=== PATIENT | female | born 1980 | race Caucasian/White ===

== ENCOUNTER 2020-08-13 16:57 | Emergency (ER) | payer OTHER, SELFPAY ==
--- NOTE | 2020-08-13 | XR_ITS ---
EXAMINATION: LEFT HAND CLINICAL INFORMATION: Injury. Pain. COMPARISON: None TECHNIQUE: 3 views. FINDINGS: There is no oblique fracture of the midshaft of the third metacarpal. Fracture is slightly displaced and angulated. XR/XR hand wrist LT IMPRESSION: Oblique fracture midshaft of third metacarpal.
[2020-08-13 17:46] VITALS: BP 143/80; PULSE 93; RESP 16; TEMP 37.1; O2SAT 98; BMI 23.3
--- NOTE | 2020-08-13 18:15 | MHC.RECOVSUP ---
? Reason for consult Seeking help for detox o Current location: [facility] o Identified substance use concern: Alcohol - Seeking ATS (detox) - Support ? Intervention: o ATS bed search started ^PM /completed 6:15PM o Community resources provided o Harm reduction discussion ? Plan: o Patient to follow up with [facility] after discharge ? Additional information: could not find a detox bed for said Patient.. I provided patient with [facility] information and other resource for detox. Patient stated that she will be going to [facility] tomorrow.
--- NOTE | 2020-08-13 18:30 | ED.EXTPRO ---
HPI - Extremity Problem General Chief complaint: Extremity Injury, Upper Stated complaint: Seeking detox/hand injury Source: patient Mode of arrival: ambulatory Limitations: no limitations History of Present Illness HPI Narrative: 39-year-old female with known hand fracture presents for left hand pain. She stated that she removed the splint that was placed by a prior provider because she was upset that she was not seen immediately by Orthopedics. She is also requesting detox for alcohol. MD Complaint: extremity pain Onset (ago): week(s) (1) Pain Consistency: constant Location: left Severity scale (1-10): 9 Quality: aching Relieving factors: nothing Exacerbating factors: range of motion and palpation Associated symptoms: denies other symptoms Related Data Previous Rx's Medication Instructions Recorded chlordiazepoxide HCl 25 mg PO Q12H PRN #30 cap 08/13/20 ibuprofen 600 mg PO Q8H PRN #30 tab 08/13/20 valacyclovir 1,000 mg PO DAILY 5 Days #5 tab 08/13/20 Allergies Allergy/AdvReac Type Severity Reaction Status Date / Time bee pollen [BEE STINGS] Allergy Unknown ANAPHYLAXIS Unverified 04/03/20 16:21 Review of Systems Review of Systems: Constitutional: No Fever, No Chills ENT/Mouth: No Ear Pain, No Hoarseness, No sore throat Eyes: No Eye Pain, No Swelling, No Redness, No Foreign Body Cardiovascular: No Chest Pain, No SOB Respiratory: No Cough, No Dyspnea Gastrointestinal: No Nausea, No Vomiting, No Diarrhea, No abdominal Pain Genitourinary: No Dysuria, No Hematuria Musculoskeletal: positive left hand pain with known fracture, No Myalgias, No Joint Swelling Skin: No Skin lacerations, No rash Neuro: No Weakness, No Numbness, No Paresthesias, No Loss of Consciousness, No Dizziness, No Headache Psych: Positive alcohol abuse, No Anxiety/Panic, No Depression Heme/Lymph: no easy bruising, no Lymphadenopathy Endocrine: No Polyuria, No Polydipsia Yes all other systems are reviewed and are negative [facility] Past Medical History Attestation statement: The following information was validated with the patient. Medical History Hepatitis C Social History Social History Smoking Status: Current every day smoker Use of substances other than those prescribed or required for medical reasons: Yes Substance Use Type: Crack/Cocaine and Marijuana Any prior treatment program specific to substance use: Yes Advance Directives: No Advance Directives Information Provided: Yes Physical Exam Vital Signs: Vital Signs: Last Vital Signs Temp 98.2 F 08/13/20 19:05 Pulse 104 H 08/13/20 19:05 Resp 18 08/13/20 19:05 BP 134/82 08/13/20 19:05 Pulse Ox 97 08/13/20 19:05 Body Mass Index 23.3 Appearance: Alert. Oriented X3. No acute distress. Eyes: Pupils equal, round and reactive to light. ENT: Pharynx normal. Neck: Normal inspection. Neck supple. CVS: Normal heart rate and rhythm. Pulses normal. Respiratory: No respiratory distress. Breath sounds normal. Abdomen: Soft and nontender. Skin: Skin warm and dry. Normal skin color. Normal skin turgor. Extremities: No lower extremity edema. Neuro: No motor deficit. No sensory deficit. Course Course Course Narrative: 39-year-old female with known left hand fracture presents with left hand pain. Is not forthcoming with the information regarding where she was treated for her fracture, she did state that she removed the splint and did not give a reason why. She is also requesting treatment for oral herpes simplex 1 and alcohol withdrawal. Patient does have limited range of motion but no swelling brisk capillary refill to all digits and pulses equal. She is able to move the fingers individually. Minimal swelling noted. X-ray of left hand shows 3rd metacarpal carpal displaced fracture, discussed case with orthopedics and they will follow up with her tomorrow. Ulnar gutter splint placed. Brisk capillary refill noted 30 minutes status post splint placement. Will give her valacyclovir for herpes and Librium for alcohol withdrawal. Detox assistant track and field coach did speak to her and are looking for outpatient beds. Patient verbalized understanding of and agrees plan of care discharge home. Consultations Consultation #1: Nelson Time: 18:56 MDM - Extremity (Nontraumatic) MDM Narrative Medical decision making narrative: Left hand fracture, alcohol withdrawal Differential Diagnosis Differential diagnosis: Likely herpes zoster Medical Records Attestation: I reviewed the patient's medical records. Imaging Data Left hand x-ray: Attestation: I personally reviewed and interpreted this imaging study as follows: Radiologist's impression: EXAMINATION: LEFT HAND CLINICAL INFORMATION: Injury. Pain. COMPARISON: None TECHNIQUE: 3 views. FINDINGS: There is no oblique fracture of the midshaft of the third metacarpal. Fracture is slightly displaced and angulated. XR/XR hand wrist LT IMPRESSION: Oblique fracture midshaft of third metacarpal. Discharge Plan Discharge Clinical Impression: Fracture of wrist, Alcohol withdrawal, Cold sore Patient Disposition: Home, Self-Care Instructions: Hand Fracture (ED), Oral Herpes Simplex Virus Infections (ED), Alcohol Withdrawal (ED) Additional Instructions: You were evaluated for fracture of left hand. Please keep the splint in place until you see Orthopedics. Please call Orthopedics tomorrow, we have provided you a referral number. For your oral herpes simplex, we prescribed valacyclovir twice a day. For alcohol withdrawal we have prescribed Librium. Please take medication as directed. This medication may cause drowsiness, and increased risk for fall. Please use caution when taking this medication. Do not drive or operate machinery while taking this medication. Please consider following up with outpatient detox. Thank you for choosing this emergency department for evaluation. Please follow-up with primary care physician as needed. Return to the emergency department for any new, concerning, or worsening symptoms. Prescriptions: New chlordiazepoxide HCl 25 mg capsule 25 mg PO Q12H PRN (Reason: alcohol withdrawal) Qty: 30 RF: 0 valacyclovir 1 gram tablet 1,000 mg PO DAILY 5 Days Qty: 5 RF: 0 ibuprofen 600 mg tablet 600 mg PO Q8H PRN (Reason: pain) Qty: 30 RF: 0 Referrals: Bella Damon PA-C [Physician Environmental Technician] - 2 days Interventions: ED Discharge Assessment Last Done: 08/13/20 19:58 Discharge Date/Time: 08/13/20 20:00
[2020-08-13 19:05] VITALS: BP 134/82; PULSE 104; RESP 18; TEMP 36.8; O2SAT 97
[2020-08-13] MEDS: Ibuprofen 600 MG TABLET PO (19:40)
--- NOTE | 2020-08-13 19:55 | PC.NURSE ---
PT SPOKE WITH CARE TEAM REGARDING DETOX OPTION AND PT WILL F/U IN MORNING WITH CALLING FOR PLACEMENT INFO PROVIDED TO HER. PT TO CALL IN AM. NO FACILITIES AVAILABLE AT THIS TIME.
== END 2020-08-13 20:00 | disposition home or self-care (01) ==
PROVIDERS: Emergency Provider Emergency Medicine; PCP Internal Medicine
DX: S62.102A Fracture of unspecified carpal bone, left wrist, initial encounter for closed fracture (principal); M79.642 Pain in left hand; F10.239 Alcohol dependence with withdrawal, unspecified; F17.200 Nicotine dependence, unspecified, uncomplicated; F14.90 Cocaine use, unspecified, uncomplicated; F12.90 Cannabis use, unspecified, uncomplicated; B00.1 Herpesviral vesicular dermatitis; W01.0XXA Fall on same level from slipping, tripping and stumbling without subsequent striking against object, initial encounter; Y93.9 Activity, unspecified; Y92.9 Unspecified place or not applicable; Y99.9 Unspecified external cause status; Y90.9 Presence of alcohol in blood, level not specified; Z79.899 Other long term (current) drug therapy; Z71.6 Tobacco abuse counseling
CPT/HCPCS: 73110; 73130; 99284

== ENCOUNTER 2020-08-18 13:39 | Outpatient (REF) | payer OTHER, SELFPAY ==
--- NOTE | 2020-08-18 14:13 | XR_ITS ---
EXAMINATION: XR HAND, LEFT CLINICAL INFORMATION: Pain. COMPARISON: Radiographs dated 08/13/2020. TECHNIQUE: PA, lateral, and oblique views of the left hand. FINDINGS: Bony mineralization is normal. An angulated, oblique fracture is seen of the midshaft of the third metacarpal bone, in stable alignment. The distal fracture fragment again shows approximately 5 mm of posterior displacement and 2 mm of medial displacement. No dislocation is seen. There are no unusual degenerative changes. No foreign body is seen. There is mild soft tissue swelling of the dorsum of hand. XR/XR hand LT min 3V IMPRESSION: There is stable alignment of an oblique fracture of the midshaft of the left third metacarpal.
== END 2020-08-18 13:40 | disposition home or self-care (01) ==
LOC: HO.HOSX 13:39
PROVIDERS: Visit Provider Physician Assistant
DX: M79.642 Pain in left hand (principal); S62.323A Displaced fracture of shaft of third metacarpal bone, left hand, initial encounter for closed fracture; Y04.2XXA Assault by strike against or bumped into by another person, initial encounter; Y93.9 Activity, unspecified; Y92.9 Unspecified place or not applicable; Y99.8 Other external cause status; B19.20 Unspecified viral hepatitis C without hepatic coma; F14.20 Cocaine dependence, uncomplicated; F12.20 Cannabis dependence, uncomplicated; F17.200 Nicotine dependence, unspecified, uncomplicated; Z91.030 Bee allergy status; Z59.0 Homelessness
CPT/HCPCS: 29075; 73130; 99202

== ENCOUNTER 2020-08-18 15:25 | Emergency (ER) | payer OTHER, SELFPAY ==
--- NOTE | 2020-08-18 17:29 | PC.NURSE ---
back timed- this rn witnessed tech assist pt to bathroom, after 5-8mins, checked on pt- pt not answering, refusing to open door. Security at bathroom, pt opened door- appeared to have reddened sclera- pt stated im leaving.. , pt encouraged to stay for treatment, pt refused and left without further incident.
== END 2020-08-18 17:34 | disposition left against medical advice (07) ==
PROVIDERS: Emergency Provider Emergency Medicine
DX: F10.10 Alcohol abuse, uncomplicated (principal)

== ENCOUNTER 2021-06-25 12:50 | Emergency (ER) | payer OTHER, SELFPAY ==
--- NOTE | ~2021-06-25 | CT_ITS ---
EXAMINATION: CT ABDOMEN AND PELVIS WITH CONTRAST CLINICAL INFORMATION: Right upper quadrant pain. Epigastric pain. COMPARISON: None TECHNIQUE: Multidetector volumetric images were obtained from the superior aspect of the liver through the pubic symphysis following administration 85 mL of Omnipaque 350 intravenous contrast. Sagittal and coronal reformatted images were obtained on the technologist's workstation. Oral contrast: No. This CT examination was performed using dose optimization techniques as appropriate, variously including the following: *Automated exposure control *Adjustment of mA and/or kV according to patient size (this includes techniques or standardized protocols for targeted exams where dose is matched to indication/reason for exam; i.e. extremities or head) *Use of iterative reconstruction technique DLP: 471 mGy-cm FINDINGS: LUNG BASES: The visualized lung bases are unremarkable. LIVER, GALLBLADDER, AND BILIARY TREE: The liver is mildly enlarged with normal shape and attenuation. No focal hepatic lesion or biliary ductal dilatation is present. The gallbladder is partially distended with no evidence of radiopaque gallstones, gallbladder wall thickening, or obvious pericholecystic inflammatory changes. PANCREAS: Unremarkable. SPLEEN: Mildly enlarged measuring up to 14.5 cm in greatest dimension. ADRENAL GLANDS: Unremarkable. KIDNEYS AND URETERS: The kidneys are normal in size, shape, and attenuation. No hydronephrosis, hydroureter, or calculi seen. No perinephric stranding. BLADDER: Unremarkable. GASTROINTESTINAL TRACT: Small, sliding hiatal hernia. No bowel wall thickening or associated inflammatory change. Mild stool burden. No small or large bowel obstruction. Appendix is not well seen. No right lower quadrant inflammatory change. PERITONEAL CAVITY: No intra-abdominal free air or free fluid. No intra-abdominal mass or organized fluid collection/abscess formation. ABDOMINAL WALL: No significant hernia is appreciated. LYMPH NODES: Normal. VASCULAR: No abdominal aortic dilatation or dissection. There is prominence of the portal vein with collateral vessels adjacent to the gastroesophageal junction. PELVIC VISCERA: The uterus and adnexa are unremarkable. OSSEOUS STRUCTURES: Unremarkable. CT/CT abdomen pelvis w con IMPRESSION: 1. Mild hepatosplenomegaly. Prominence of the portal vein with collateral vessels adjacent to the gastroesophageal junction. A degree of portal hypertension could be considered in the appropriate clinical setting. No hepatic parenchymal lesion or biliary ductal dilatation. Unremarkable gallbladder without cholelithiasis or inflammatory change. 2. Otherwise unremarkable examination. Fleischner guidelines were followed.
[2021-06-25 13:41] VITALS: BP 105/66; PULSE 79; TEMP 36.6; O2SAT 98; BMI 24.3
--- NOTE | 2021-06-25 14:09 | PC.NURSE ---
PATIENT BROUGHT TO TRAIGE/EKG ROOM TO DRAW BLOOD WHILE SHE WAITS IN THE WAITING ROOM. PATIENT STATES SHE IS ONLY GOING TO ALLOW A SINGLE ATTEMPT AT BLOOD DRAWS DURING THIS VISIT AND ALSO REQUESTS AN BLOOD TEST FOR . PER DIESEL ENGINE INSPECTOR KASSIE FRANKS, I INFORMED THE PATIENT THAT THIS TEST MUST BE ORDERED BY AN ED PHYSICIAN AND CANNOT BE ORDERED UNTIL SHE IS BROUGHT TO A ROOM IN THE ED. PATIENT SUBSEQUENTLY DECLINED TO HAVE HER BLOOD DRAWN AT THIS TIME.
[2021-06-25 14:28] LABS: Appearance Urine CLEAR; Color Urine YELLOW; Glucose Urine UA NEG (NEG); Leukocyte Esterase Urine NEG (NEG); Nitrite Urine NEG (NEG); Urine Blood NEG (NEG); Urine Ketones NEG (NEG); Urine Protein NEG (NEG-TRACE)
[2021-06-25 14:29] LABS: UPreg QC Valid YES; Urine Pregnancy NEGATIVE (NEGATIVE)
[2021-06-25 14:38] LABS: Squamous Epithelial Cell Urine 1+ /LPF
[2021-06-25 14:39] LABS: Bacteria Urine TRACE /LPF
[2021-06-25 14:40] LABS: RBC Urine 0-2 /HPF (0); WBC Urine 0 /HPF (0-4)
--- NOTE | 2021-06-25 15:56 | ED_ITS ---
HPI - Abdominal Pain General Chief Complaint: Abdominal Pain Stated Complaint: Liver issues Time Seen by Provider: 06/25/21 15:41 Source: patient Mode of arrival: ambulatory Limitations: no limitations History of Present Illness HPI narrative: Patient comes to emergency room complaining of abdominal bloating. Patient states that over the last week, she has had abdominal swelling, nausea, no vomiting or diarrhea. Patient states that she has been 7 times and she usually gets similar symptoms at the beginning of her . Patient has been 7 times, states that for most of her pregnancies, the urine test was negative but the blood work was positive. Patient states that she was recently diagnosed with hepatitis-C, she has not started treatment yet. Related Data Previous Rx's Medication Instructions Recorded chlordiazepoxide HCl 25 mg capsule 25 mg PO Q12H PRN #10 cap 08/14/20 ibuprofen 600 mg tablet 600 mg PO Q8H PRN #20 tab 08/14/20 valacyclovir 1 gram tablet 1,000 mg PO DAILY #5 tab 08/14/20 Allergies Allergy/AdvReac Type Severity Reaction Status Date / Time bee pollen [BEE STINGS] Allergy Unknown ANAPHYLAXIS Unverified 04/03/20 16:21 Review of Systems Review of Systems Constitutional : No Weight loss, No Fever, No Chills, No Night Sweats, worsening fatigue ENT/Mouth : No Hearing loss, No Ear Pain, No Nasal Congestion, No Sinus Pain, No Hoarseness, No sore throat, No Rhinorrhea, No Swallowing Difficulty Eyes: No Eye Pain, No Swelling, No Redness, No Foreign Body, No Discharge, No Vision Changes Cardiovascular : No Chest Pain, No SOB, No Dyspnea on Exertion, No Orthopnea, No Edema, No Palpitations Respiratory : No Cough, No Sputum, No Wheezing, No Smoke Exposure, No Dyspnea Gastrointestinal : Complaining of Nausea, No Vomiting, No Diarrhea, complaining upper abdominal bloating/swelling Genitourinary : no irregular bleeding, No Dysuria, No Urinary Frequency, No Hematuria, No Urinary Incontinence, No Urgency, No Flank Pain, No Urinary Flow Changes, No Hesitancy Musculoskeletal : No joint pain, No Myalgias, No Joint Swelling Skin : No Skin Lesions, No rash Neuro : No Weakness, No Numbness, No Paresthesias, No Loss of Consciousness, No Dizziness, No Headache Psych : No Anxiety/Panic, No Depression, No SI/HI/AH/VH, No Social Issues, Heme/Lymph: No Bruising, No Bleeding,No Lymphadenopathy Endocrine : No Polyuria, No Polydipsia, No Temperature Intolerance Physical Exam Vital Signs: Vital Signs: Last Vital Signs Temp 97.8 F 06/25/21 13:41 Pulse 76 06/25/21 18:02 Resp 18 06/25/21 18:02 BP 115/56 L 06/25/21 18:02 Pulse Ox 100 06/25/21 18:02 BMI result Body Mass Index 24.3 Const: Other: Appearance: Alert. Oriented X3. No acute distress. Well- appearing Eyes: Pupils equal, round and reactive to light. ENT: Pharynx normal. Neck: Normal inspection. Neck supple. No lymph nodes noted. No crepitus CVS: Normal heart rate and rhythm. Pulses normal. Normal S1 and S2 Respiratory: No respiratory distress. Breath sounds normal. No Wheezing. No rales Abdomen: Soft and nontender. No rigidity, no distended, no guarding, negative Agee Skin: Skin warm and dry. Normal skin color. Normal skin turgor. Extremities: No lower extremity edema. No Lacerations. No Rash Neuro: Oriented X 3. No motor deficit. No sensory deficit. Moving all extermities. No slurred speech. Course Course Course Narrative: I discussed the labs and imaging with the patient. Patient instructed to follow-up with Infectious Disease and with Gastroenterology for evaluation of portal hypertension MDM - Abdominal Pain Lab Data Result diagrams: 06/25/21 16:46 06/25/21 16:46 Labs: Lab Results 06/25/21 06/25/21 06/25/21 Range/Units 14:14 14:14 14:15 WBC (4.8-10.8) X10*3/uL RBC (4.20-5.50) X10*6/uL Hgb (12.0-16.0) g/dl Hct (37.0-47.0) % MCV (80.0-98.0) fL MCH (27.0-33.0) pg MCHC (31.0-35.0) g/dl RDW (11.0-16.0) % Plt Count (160-400) X10*3/uL MPV (9.4-12.3) fL Immature Gran % (Auto) (0.0-0.4) % Neut % (Auto) (45-73) % Lymph % (Auto) (20-40) % [place] % (Auto) (2-11) % Eos % (Auto) (0-4) % Baso % (Auto) (0-2) % Lymph # (Auto) (1.2-4.9) X10*3/uL [place] # (Auto) (0.1-1.2) X10*3/uL Eos # (Auto) (0.0-0.4) X10*3/uL Baso # (Auto) (0.0-0.2) X10*3/uL Abs Immat Gran (auto) (0.00-0.03) X10*3/uL Absolute Neuts (auto) (2.0-8.3) x10*3/uL Absolute Nucleated RBC (0.0-0.012) X10*3/uL Nucleated RBC % (auto) (0.0-0.2) /100WBC Sodium (135-145) mmol/L Potassium (3.3-5.1) mmol/L Chloride (96-108) mmol/L Carbon Dioxide (22-29) mmol/L Anion Gap (12-20) BUN (9-16) mg/dL Creatinine (0.5-1.4) mg/dL Estim Creat Clear Calc Estimated GFR Random Glucose (60-115) mg/dL Calcium (8.4-10.2) mg/dL Magnesium (1.6-2.6) mg/dL Total Bilirubin (0.0-1.0) mg/dL Direct Bilirubin (0.0-0.5) mg/dL AST (5-31) U/L ALT (0-31) U/L Alkaline Phosphatase (39-117) U/L Total Protein (6.5-8.0) g/dL Albumin (3.5-5.0) g/dL Lipase (8-78) U/L Beta HCG, Quant mIU/mL Urine Color YELLOW Urine Appearance CLEAR Urine pH 8.0 (5.0-8.0) Ur Specific [place] 1.010 (1.005-1.025) Urine Protein NEG (NEG-TRACE) MG/DL Urine Glucose (UA) NEG (NEG) MG/DL Urine Ketones NEG (NEG) MG/DL Urine Blood NEG (NEG) Urine Nitrite NEG (NEG) Ur Leukocyte Esterase NEG (NEG) Urine RBC 0-2 (0) /HPF Urine WBC 0 (0-4) /HPF Ur Squamous Epith Cells 1+ /LPF Urine Bacteria TRACE /LPF Urine Test NEGATIVE (NEGATIVE) Urine Opiates Screen Not Detected (Not Detect) Urine Fentanyl Screen Not Detected (Not Detect) Ur Barbiturates Screen Not Detected (Not Detect) Ur Phencyclidine Scrn Not Detected (Not Detect) Ur Amphetamines Screen Not Detected (Not Detect) U Benzodiazepines Scrn Not Detected (Not Detect) Urine Cocaine Screen Not Detected (Not Detect) U Marijuana (THC) Screen Not Detected (Not Detect) Ethyl Alcohol mg/dL COVID-19 ([facility]) (Negative) COVID-19 Clin Com 06/25/21 06/25/21 06/25/21 Range/Units 16:46 16:46 16:46 WBC 7.1 (4.8-10.8) X10*3/uL RBC 4.52 (4.20-5.50) X10*6/uL Hgb 14.1 (12.0-16.0) g/dl Hct 41.9 (37.0-47.0) % MCV 92.7 (80.0-98.0) fL MCH 31.2 (27.0-33.0) pg MCHC 33.7 (31.0-35.0) g/dl RDW 11.9 (11.0-16.0) % Plt Count 209 (160-400) X10*3/uL MPV 8.9 L (9.4-12.3) fL Immature Gran % (Auto) 0.1 (0.0-0.4) % Neut % (Auto) 53.1 (45-73) % Lymph % (Auto) 32.4 (20-40) % [place] % (Auto) 8.3 (2-11) % Eos % (Auto) 5.4 H (0-4) % Baso % (Auto) 0.7 (0-2) % Lymph # (Auto) 2.3 (1.2-4.9) X10*3/uL [place] # (Auto) 0.6 (0.1-1.2) X10*3/uL Eos # (Auto) 0.4 (0.0-0.4) X10*3/uL Baso # (Auto) 0.1 (0.0-0.2) X10*3/uL Abs Immat Gran (auto) 0.01 (0.00-0.03) X10*3/uL Absolute Neuts (auto) 3.8 (2.0-8.3) x10*3/uL Absolute Nucleated RBC 0.000 (0.0-0.012) X10*3/uL Nucleated RBC % (auto) 0.0 (0.0-0.2) /100WBC Sodium 139 (135-145) mmol/L Potassium 3.5 (3.3-5.1) mmol/L Chloride 107 (96-108) mmol/L Carbon Dioxide 24 (22-29) mmol/L Anion Gap 12 (12-20) BUN 10 (9-16) mg/dL Creatinine 0.81 (0.5-1.4) mg/dL Estim Creat Clear Calc 83.9 Estimated GFR > 60 Random Glucose 83 (60-115) mg/dL Calcium 9.7 (8.4-10.2) mg/dL Magnesium 2.3 (1.6-2.6) mg/dL Total Bilirubin < 0.2 (0.0-1.0) mg/dL Direct Bilirubin < 0.2 (0.0-0.5) mg/dL AST 51 H (5-31) U/L ALT 86 H (0-31) U/L Alkaline Phosphatase 57 (39-117) U/L Total Protein 7.6 (6.5-8.0) g/dL Albumin 4.7 (3.5-5.0) g/dL Lipase 28 (8-78) U/L Beta HCG, Quant mIU/mL Urine Color Urine Appearance Urine pH (5.0-8.0) Ur Specific [place] (1.005-1.025) Urine Protein (NEG-TRACE) MG/DL Urine Glucose (UA) (NEG) MG/DL Urine Ketones (NEG) MG/DL Urine Blood (NEG) Urine Nitrite (NEG) Ur Leukocyte Esterase (NEG) Urine RBC (0) /HPF Urine WBC (0-4) /HPF Ur Squamous Epith Cells /LPF Urine Bacteria /LPF Urine Test (NEGATIVE) Urine Opiates Screen (Not Detect) Urine Fentanyl Screen (Not Detect) Ur Barbiturates Screen (Not Detect) Ur Phencyclidine Scrn (Not Detect) Ur Amphetamines Screen (Not Detect) U Benzodiazepines Scrn (Not Detect) Urine Cocaine Screen (Not Detect) U Marijuana (THC) Screen (Not Detect) Ethyl Alcohol mg/dL COVID-19 ([facility]) (Negative) COVID-19 Clin Com 06/25/21 06/25/21 06/25/21 Range/Units 16:46 16:46 16:46 WBC (4.8-10.8) X10*3/uL RBC (4.20-5.50) X10*6/uL Hgb (12.0-16.0) g/dl Hct (37.0-47.0) % MCV (80.0-98.0) fL MCH (27.0-33.0) pg MCHC (31.0-35.0) g/dl RDW (11.0-16.0) % Plt Count (160-400) X10*3/uL MPV (9.4-12.3) fL Immature Gran % (Auto) (0.0-0.4) % Neut % (Auto) (45-73) % Lymph % (Auto) (20-40) % [place] % (Auto) (2-11) % Eos % (Auto) (0-4) % Baso % (Auto) (0-2) % Lymph # (Auto) (1.2-4.9) X10*3/uL [place] # (Auto) (0.1-1.2) X10*3/uL Eos # (Auto) (0.0-0.4) X10*3/uL Baso # (Auto) (0.0-0.2) X10*3/uL Abs Immat Gran (auto) (0.00-0.03) X10*3/uL Absolute Neuts (auto) (2.0-8.3) x10*3/uL Absolute Nucleated RBC (0.0-0.012) X10*3/uL Nucleated RBC % (auto) (0.0-0.2) /100WBC Sodium (135-145) mmol/L Potassium (3.3-5.1) mmol/L Chloride (96-108) mmol/L Carbon Dioxide (22-29) mmol/L Anion Gap (12-20) BUN (9-16) mg/dL Creatinine (0.5-1.4) mg/dL Estim Creat Clear Calc Estimated GFR Random Glucose (60-115) mg/dL Calcium (8.4-10.2) mg/dL Magnesium (1.6-2.6) mg/dL Total Bilirubin (0.0-1.0) mg/dL Direct Bilirubin (0.0-0.5) mg/dL AST (5-31) U/L ALT (0-31) U/L Alkaline Phosphatase (39-117) U/L Total Protein (6.5-8.0) g/dL Albumin (3.5-5.0) g/dL Lipase (8-78) U/L Beta HCG, Quant < 2 mIU/mL Urine Color Urine Appearance Urine pH (5.0-8.0) Ur Specific [place] (1.005-1.025) Urine Protein (NEG-TRACE) MG/DL Urine Glucose (UA) (NEG) MG/DL Urine Ketones (NEG) MG/DL Urine Blood (NEG) Urine Nitrite (NEG) Ur Leukocyte Esterase (NEG) Urine RBC (0) /HPF Urine WBC (0-4) /HPF Ur Squamous Epith Cells /LPF Urine Bacteria /LPF Urine Test (NEGATIVE) Urine Opiates Screen (Not Detect) Urine Fentanyl Screen (Not Detect) Ur Barbiturates Screen (Not Detect) Ur Phencyclidine Scrn (Not Detect) Ur Amphetamines Screen (Not Detect) U Benzodiazepines Scrn (Not Detect) Urine Cocaine Screen (Not Detect) U Marijuana (THC) Screen (Not Detect) Ethyl Alcohol < 10 mg/dL COVID-19 ([facility]) Negative (Negative) COVID-19 Clin Com See Note Imaging Data CT scan - abdomen: Radiologist's impression: FINDINGS: LUNG BASES: The visualized lung bases are unremarkable.? LIVER, GALLBLADDER, AND BILIARY TREE: The liver is mildly enlarged with normal shape and attenuation. No focal hepatic lesion or biliary ductal dilatation is present. The gallbladder is partially distended with no evidence of radiopaque gallstones, gallbladder wall thickening, or obvious pericholecystic inflammatory changes.? PANCREAS: Unremarkable.? SPLEEN: Mildly enlarged measuring up to 14.5 cm in greatest dimension. ADRENAL GLANDS: Unremarkable.? KIDNEYS AND URETERS: The kidneys are normal in size, shape, and attenuation. No hydronephrosis, hydroureter, or calculi seen. No perinephric stranding. BLADDER: Unremarkable.? GASTROINTESTINAL TRACT: Small, sliding hiatal hernia. No bowel wall thickening or associated inflammatory change. Mild stool burden. No small or large bowel obstruction. Appendix is not well seen. No right lower quadrant inflammatory change. PERITONEAL CAVITY: No intra-abdominal free air or free fluid. No intra-abdominal mass or organized fluid collection/abscess formation.? ABDOMINAL WALL: No significant hernia is appreciated.? LYMPH NODES: Normal. VASCULAR: No abdominal aortic dilatation or dissection. There is prominence of the portal vein with collateral vessels adjacent to the gastroesophageal junction. PELVIC VISCERA: The uterus and adnexa are unremarkable.? OSSEOUS STRUCTURES: Unremarkable.? CT/CT abdomen pelvis w con IMPRESSION: 1. Mild hepatosplenomegaly. Prominence of the portal vein with collateral vessels adjacent to the gastroesophageal junction. A degree of portal hypertension could be considered in the appropriate clinical setting. No hepatic parenchymal lesion or biliary ductal dilatation. Unremarkable gallbladder without cholelithiasis or inflammatory change. ? 2. Otherwise unremarkable examination. ? Fleischner guidelines were followed. Discharge Plan Discharge Clinical Impression: Abdominal pain Patient Disposition: Home, Self-Care Instructions: Abdominal Pain (ED) Additional Instructions: Please follow-up with your primary care physician tomorrow. If you have any worsening or new symptoms, please return to the emergency room or call 911 Prescriptions: No Action chlordiazepoxide HCl 25 mg capsule 25 mg PO Q12H PRN (Reason: alcohol withdrawal) Qty: 10 RF: 0 ibuprofen 600 mg tablet 600 mg PO Q8H PRN (Reason: pain) Qty: 20 RF: 0 valacyclovir 1 gram tablet 1,000 mg PO DAILY Qty: 5 RF: 0 Referrals: Josette Garcia MD [Physician] - 2 days Sara Lal MD [Physician] - 2 days [facility] Past Medical History Medical History Hepatitis C Social History Social History (Updated 08/18/20 @ 14:31 by Meghan Landon CMA) Substance Use Type: Crack/Cocaine and Marijuana Advance Directives: No Advance Directives Information Provided: Yes Current occupation: Right Handed
[2021-06-25 16:35] LABS: Amphetamine Screen Urine Not Detected (Not Detect); Barbiturates, Urine Not Detected (Not Detect); Benzodiazepines Screen Urine Not Detected (Not Detect); Cannabinoid Screen Urine Not Detected (Not Detect); Cocaine Screen Urine Not Detected (Not Detect); Fentanyl, urine Not Detected (Not Detect); Opiate Screen Urine Not Detected (Not Detect); Phencyclidine Screen Urine Not Detected (Not Detect)
[2021-06-25 16:53] LABS: MANUAL DIFF FLAG NO
[2021-06-25 16:54] LABS: Basophils Absolute Auto 0.1 X10*3/uL (0.0-0.2); Basophils Percent Auto 0.7 % (0-2); Eosinophils Absolute Auto 0.4 X10*3/uL (0.0-0.4); Eosinophils Percent Auto 5.4 % (0-4); Hematocrit 41.9 % (37.0-47.0); Hemoglobin 14.1 g/dl (12.0-16.0); Imm Gran Abs Auto 0.01 X10*3/uL (0.00-0.03); Imm Gran Pct Auto 0.1 % (0.0-0.4); Lymphocytes Absolute Auto 2.3 X10*3/uL (1.2-4.9); Lymphocytes Percent Auto 32.4 % (20-40); Mean Corpuscular HGB Conc 33.7 g/dl (31.0-35.0); Mean Corpuscular Hemoglobin 31.2 pg (27.0-33.0); Mean Corpuscular Volume 92.7 fL (80.0-98.0); Mean Platelet Volume 8.9 fL (9.4-12.3); Monocytes Absolute Auto 0.6 X10*3/uL (0.1-1.2); Monocytes Percent Auto 8.3 % (2-11); Neutrophils Absolute Auto 3.8 x10*3/uL (2.0-8.3); Neutrophils Percent Auto 53.1 % (45-73); Platelet Count 209 X10*3/uL (160-400); Red Blood Count 4.52 X10*6/uL (4.20-5.50); Red Cell Distribution Width 11.9 % (11.0-16.0); White Blood Count 7.1 X10*3/uL (4.8-10.8)
[2021-06-25 17:07] LABS: Ethanol < 10 mg/dL
[2021-06-25 17:10] LABS: COVID-19 Test Negative (Negative); Lipase 28 U/L (8-78); Magnesium 2.3 mg/dL (1.6-2.6)
[2021-06-25 17:14] LABS: Alanine Aminotransferase 86 U/L (0-31); Albumin Level 4.7 g/dL (3.5-5.0); Alkaline Phosphatase 57 U/L (39-117); Anion Gap 12 (12-20); Aspartate Amino Transferase 51 U/L (5-31); Bilirubin Direct < 0.2 mg/dL (0.0-0.5); Bilirubin Total < 0.2 mg/dL (0.0-1.0); Blood Urea Nitrogen 10 mg/dL (9-16); Calcium 9.7 mg/dL (8.4-10.2); Carbon Dioxide 24 mmol/L (22-29); Chloride 107 mmol/L (96-108); Creatinine Clr Calc Pharmacy 83.9; Estimated Glomerular Filt Rate > 60; Glucose Random 83 mg/dL (60-115); HCG Quantitative < 2 mIU/mL; Potassium 3.5 mmol/L (3.3-5.1); Sodium 139 mmol/L (135-145); Total Protein 7.6 g/dL (6.5-8.0)
[2021-06-25 18:02] VITALS: BP 115/56; PULSE 76; RESP 18; O2SAT 100
[2021-06-25] MEDS: iohexoL 350 MG/ML 100 ML INFUS..BTL IV (19:03)
[2021-06-25 20:02] VITALS: BP 119/60; PULSE 87; RESP 17; O2SAT 98
[2021-06-26 08:32] LABS: HBS Num1 > 1000.00 mIU/mL (0-7.99); Hepatitis A Antibody IgM 0.23 Index (0-0.79); ~HepC Num1 15.46 S/CO (0.00-0.79); ~Hepatitis A Antibody IgM Nonreactive (Nonreactive); ~Hepatitis B Surface Antibody REACTIVE (Nonreactive); ~Hepatitis C Antibody Reactive (Nonreactive)
[2021-06-26 09:04] LABS: HBc Num1 0.12 S/CO (0.00-0.79); HBsAGNum1 0.22 S/CO (0.00-0.99); Hepatitis B Core Antibody Nonreactive (Nonreactive); Hepatitis B Surface Antigen Negative (Negative)
== END 2021-06-25 20:07 | disposition home or self-care (01) ==
PROVIDERS: Emergency Provider Emergency Medicine; PCP Internal Medicine
DX: R10.9 Unspecified abdominal pain (principal); Z20.822 Contact with and (suspected) exposure to COVID-19; B19.20 Unspecified viral hepatitis C without hepatic coma; F14.90 Cocaine use, unspecified, uncomplicated
CPT/HCPCS: 36415; 74177; 80048; 80076; 80307; 81001; 81025; 82077; 83690; 83735; 84702; 85025; 86704; 86706; 86709; 86803; 87340; 87635; 99284; Q9967

== ENCOUNTER 2024-03-02 05:34 | Inpatient (IN) | payer OTHER, SELFPAY ==
[2024-03-02] VITALS (9 sets, daily range): BP systolic 100–156; BP diastolic 61–76; PULSE 75–140; RESP 12–18; TEMP 36.4–38.3; O2SAT 90–97; BMI 40.2
--- NOTE | ~2024-03-02 | CT_ITS ---
EXAMINATION: CT ANGIOGRAM OF THE CHEST WITH AND WITHOUT CONTRAST (CT PULMONARY ANGIOGRAM FOR PE) CLINICAL INFORMATION: Reason for Exam tachycardia, hypoxia COMPARISON: None available. TECHNIQUE: Prior to contrast administration, noncontrast localization images were obtained. Subsequently, multidetector volumetric imaging was performed from the thoracic inlet to below the diaphragms following the administration of 65 mL Omnipaque 350 intravenous contrast. No contrast reaction reported Sagittal, coronal, and MIP oblique sagittal reformatted images were obtained on the CT workstation, uploaded to PACS, and reviewed. This CT examination was performed using dose optimization techniques as appropriate, variously including the following: *Automated exposure control *Adjustment of mA and/or kV according to patient size (this includes techniques or standardized protocols for targeted exams where dose is matched to indication/reason for exam; i.e. extremities or head) *Use of iterative reconstruction technique Total exam dose-length product 264 mGy-cm FINDINGS: QUALITY OF STUDY/CONTRAST BOLUS: Satisfactory. PULMONARY ARTERIES: No pulmonary emboli. THORACIC AORTA: No aneurysm. LUNG: No focal consolidation or suspicious pulmonary nodules. PLEURA: No pleural effusion or pneumothorax. MEDIASTINUM: Normal heart size. Trace pericardial effusion. No hilar or mediastinal lymphadenopathy. No evidence of septal bowing or right heart strain. CORONARY ARTERY CALCIFICATION: None visualized on this study. CHEST WALL/AXILLA: No axillary or internal mammary lymphadenopathy. OSSEOUS STRUCTURES: No destructive bone lesions. UPPER ABDOMEN: Unremarkable. No reflux of contrast into the hepatic veins to suggest elevated right heart pressures. CT/CT angio chest PE protocol IMPRESSION: No evidence of pulmonary embolus. Trace pericardial effusion. VTE: negative
--- NOTE | ~2024-03-02 | CT_ITS ---
EXAMINATION: CT ORBIT WITH CONTRAST CLINICAL INFORMATION: Swollen eye. Orbital cellulitis. COMPARISON: CT head from 10/02/2012. TECHNIQUE: Multidetector helical imaging of the orbits was obtained without intravenous contrast. Multiple axial reformats and coronal/sagittal reconstructions were created at the technologist workstation for review. This CT examination was performed using dose optimization techniques as appropriate, variously including the following: *Automated exposure control. *Adjustment of mA and/or kV according to patient size (this includes techniques or standardized protocols for targeted exams where dose is matched to indication/reason for exam; i.e. extremities or head). *Use of iterative reconstruction technique. DLP: 78 mGy-cm FINDINGS: Normal appearance of the osseous orbits. Moderate left periorbital, preseptal soft tissue edema. Fat stranding slightly extends into the left malar and temporal regions. No demonstrated discrete collection nor radiopaque bodies. No right-sided periorbital soft tissue edema. No retrobulbar edema bilaterally. Normal appearance of the globes. Normal symmetric appearance of the extraocular musculature. No abnormalities of the intraconal or extraconal adipose tissue. Normal appearance of the optic nerve sheaths. Normal appearance of the lacrimal glands. No orbital fluid collections. No abnormalities of the orbital apices. The premaxillary, retromaxillary, pterygopalatine fossa, temporal fossa, and parapharyngeal adipose tissue is otherwise maintained. Normal appearance of the zygomatic arches. No nasal bone fracture. Mild rightward nasal septal deviation. The mandibular condyles remain well-seated in their respective temporal articular grooves. Mild mucosal thickening of the paranasal sinuses. The mastoid air cells and middle ear cavities remain well aerated. No layering fluid collections. No demonstrated abnormalities of the visualized intracranial structures. CT/CT orbit BI wo IV con IMPRESSION: 1. Moderate left-sided periorbital soft tissue edema. This may be seen in the setting of nonspecific left periorbital cellulitis in the appropriate clinical setting. No demonstrated discrete collection nor radiopaque bodies. No overt globe or retrobulbar abnormalities on the noncontrast evaluation. 2. No additional acute abnormalities of the orbits.
--- NOTE | ~2024-03-02 | XR_ITS ---
EXAMINATION: XR CHEST CLINICAL INFORMATION: Leukocytosis COMPARISON: None available. TECHNIQUE: Frontal view of the chest was obtained. FINDINGS: Lungs are mildly hypoexpanded and clear. No airspace disease or pleural effusion. Cardiac silhouette is normal in size. Pulmonary vascular pattern is normal. Incidentally noted is mild amount of calcific density in region of distal infraspinatus tendon at the right shoulder; this likely represents calcium hydroxyapatite deposition/calcific tendinopathy. XR/XR chest 1V IMPRESSION: No acute pulmonary disease. No radiographic evidence of pneumonia.
--- NOTE | 2024-03-02 05:44 | ED_ITS ---
HPI - General Adult General Chief complaint: Behavioral Concerns Stated complaint: crack use Time Seen by Provider: 03/02/24 05:41 Source: patient, EMS and police Mode of arrival: EMS Limitations: altered mental status History of Present Illness ED Provider: Dr. Charley Diallo HPI narrative: Patient comes to the emergency room via ambulance with PD on board. Patient was found in a parking lot and she could be trying to break into people's cars. PD was called. Patient seems to be under the influence of drugs/alcohol. Patient on arrival is calm, cooperative, requesting to drink water. According to EMS and PD, the patient did not receive Narcan Related Data Previous Rx's ?Medication ?Instructions ?Recorded chlordiazepoxide HCl 25 mg capsule 25 mg PO Q12H PRN alcohol 08/14/20 withdrawal #10 caps ibuprofen 600 mg tablet 600 mg PO Q8H PRN pain #20 tabs 08/14/20 valacyclovir 1 gram tablet 1,000 mg PO DAILY #5 tabs 08/14/20 Allergies Allergy/AdvReac Type Severity Reaction Status Date / Time bee pollen [BEE STINGS] Allergy Unknown ANAPHYLAXIS Verified 03/02/24 05:44 Review of Systems 2 Review of Systems: Constitutional : No Weight loss, No Fever, No Chills, No Night Sweats, No Fatigue, No Malaise ENT/Mouth : No Hearing loss, No Ear Pain, No Nasal Congestion, No Sinus Pain, No Hoarseness, No sore throat, No Rhinorrhea, No Swallowing Difficulty Eyes: Complaining of thick gooey discharge for several days in both eyes Cardiovascular : No Chest Pain, No SOB, No Dyspnea on Exertion, No Orthopnea, No Edema, No Palpitations Respiratory : No Cough, No Sputum, No Wheezing, No Smoke Exposure, No Dyspnea Gastrointestinal : Complaining of nausea vomiting and diarrhea, No Constipation, No abdominal Pain, No Hematochezia, No Melena Genitourinary : no irregular bleeding, No Dysuria, No Urinary Frequency, No Hematuria, No Urinary Incontinence, No Urgency, No Flank Pain, No Urinary Flow Changes, No Hesitancy Musculoskeletal : No joint pain, No Myalgias, No Joint Swelling Skin : No Skin Lesions, No rash Neuro : No Weakness, No Numbness, No Paresthesias, No Loss of Consciousness, No Dizziness, No Headache Psych : Admits to using drugs Heme/Lymph: No Bruising, No Bleeding,No Lymphadenopathy Endocrine : No Polyuria, complaining of feeling very thirsty, No Temperature Intolerance PMFSH Past Medical History Medical History Hepatitis C Social History Social History (Updated 08/18/20 @ 14:31 by Meghan Landon CMA) Substance Use Type: Crack/Cocaine and Marijuana Current occupation: Right Handed Physical Exam ED Vital Signs: Vital Signs - 24 hr 03/02/24 05:41 03/02/24 06:15 Temperature 97.6 F Pulse Rate 101 H 112 H Respiratory Rate 17 16 Blood Pressure 119/76 109/69 Pulse Oximetry 97 90 L Oxygen Delivery Method Room Air Room Air BMI result Body Mass Index 40.2 Const Other: Appearance: Alert. , seems to be under the influence of drugs versus drugs , answering questions, ambulating with steady gait unassisted, disheveled Eyes: Patient has bilateral scleral injection ENT: Pharynx normal. Neck: Normal inspection. Neck supple. No lymph nodes noted. No crepitus CVS: Normal heart rate and rhythm. Pulses normal. Normal S1 and S2 Respiratory: No respiratory distress. Breath sounds normal. No Wheezing. No rales Abdomen: Soft and nontender. No rigidity. No distention. Skin: Multiple bruises throughout upper and lower extremities Extremities: No lower extremity edema. No Lacerations. No Rash Neuro: Ambulatory by herself with steady gait, Moving all extremities. No slurred speech. CN 2 through 12 grossly intact Psych: calm, cooperative, Course Course Course Narrative: Patient being given erythromycin for conjunctivitis, patient claims that she has had discharge from both eyes for several days. No visual changes -patient complaining of feeling nauseous and having diarrhea, patient was given p.o. loperamide and Zofran. -patient denies SI or HI, section 12 not indicated -patient will allow us to obtain blood work but she refused this and IV at this time. Medications Administered Discontinued Medications Generic Name Dose Route Start Last Admin Trade Name Freq PRN Reason Stop Dose Admin Erythromycin 1 cm 03/02/24 05:44 03/02/24 06:01 Erythromycin Base 0.5% Oph Oin 1 Gm Tube EYE-BOTH 03/02/24 05:45 1 cm ONCE ONE Administration Loperamide HCl 4 mg 03/02/24 05:44 03/02/24 06:00 Loperamide Hcl 2 Mg Capsule PO 03/02/24 05:45 4 mg ONCE ONE Administration Ondansetron HCl 4 mg 03/02/24 05:44 03/02/24 06:00 Ondansetron Odt 4 Mg Tab.Shala [place] 03/02/24 05:45 4 mg ONCE ONE Administration Medical Decision Making Medical Decision Making [facility] Narrative: -my interpretation of labs: Patient's white blood cell count is 21.1. At this time, other than the conjunctivitis in both eyes, there is no clear source of infection. Patient's oxygen is a bit decreased, in the low 90s. However, it is possible that patient use narcotics, urine toxicology pending. ETOH level pending. -chest x-ray pending -serology pending -patient refusing IV. Patient too somnolent for any p.o. antibiotics/medications -although patient is very somnolent, oxygen saturation is in the 90s, patient has not received any Narcan today Differential Diagnosis Differential Diagnoses: The differential diagnosis associated with the presentation includes (Alcohol abuse, polysubstance abuse, conjunctivitis, viral illness) Admission/Observation Consideration of admission/observation: Escalation of care including admission/observation considered (Metabolize to freedom, patient to intoxicated/under the influence. Patient may have an infection, viral versus bacterial, workup is in progress, may need admission) Lab Data [facility] Lab Attestation statement: I reviewed the patient's lab results. 03/02/24 05:50 03/02/24 06:18 Labs: Lab Results 03/02/24 Range/Units 05:50 WBC 21.1 H (4.8-10.8) X10*3/uL RBC 5.23 (4.20-5.50) X10*6/uL Hgb 15.9 (12.0-16.0) g/dl Hct 44.7 (37.0-47.0) % MCV 85.5 (80.0-98.0) fL MCH 30.4 (27.0-33.0) pg MCHC 35.6 H (31.0-35.0) g/dl RDW 12.0 (11.0-16.0) % Plt Count 304 D (160-400) X10*3/uL MPV 8.5 L (9.4-12.3) fL Immature Gran % (Auto) 0.7 H (0.0-0.4) % Neut % (Auto) 86.7 H (45-73) % Lymph % (Auto) 6.4 L (20-40) % [place] % (Auto) 5.9 (2-11) % Eos % (Auto) 0.0 (0-4) % Baso % (Auto) 0.3 (0-2) % Lymph # (Auto) 1.4 (1.2-4.9) X10*3/uL [place] # (Auto) 1.3 H (0.1-1.2) X10*3/uL Eos # (Auto) 0.0 (0.0-0.4) X10*3/uL Baso # (Auto) 0.1 (0.0-0.2) X10*3/uL Abs Immat Gran (auto) 0.15 H (0.00-0.03) X10*3/uL Absolute Neuts (auto) 18.3 H (2.0-8.3) x10*3/uL Absolute Nucleated RBC 0.000 (0.0-0.012) X10*3/uL Nucleated RBC % (auto) 0.0 (0.0-0.2) /100WBC Critical Care Time Critical Care Time Critical Care Time: Yes Total Critical Care Time: 45 Attestation: I have personally provided critical care time. Time includes review of lab data, radiology results, discussion with consultants, and monitoring for potential decompensation. Intervention performed as documented. Discharge Plan Discharge Clinical Impression: Polysubstance abuse, Leukocytosis, Conjunctivitis Patient Disposition: Still a Patient Prescriptions: No Action chlordiazepoxide HCl 25 mg capsule 25 mg PO Q12H PRN (Reason: alcohol withdrawal) Qty: 10 0RF ibuprofen 600 mg tablet 600 mg PO Q8H PRN (Reason: pain) Qty: 20 0RF valacyclovir 1 gram tablet 1,000 mg PO DAILY Qty: 5 0RF Print Language: Guyanese
[2024-03-02] MEDS: Loperamide HCl 2 MG CAPSULE 4 MG PO (06:00)
[2024-03-02] MEDS: Ondansetron ODT 4 MG TAB.RAPDIS TRANSLINGU (06:00)
[2024-03-02] MEDS: Erythromycin Base 0.5% Oph Oin 1 GM TUBE 1 CM EYE-BOTH ×3 (06:01→20:20)
[2024-03-02 06:17] LABS: Basophils Absolute Auto 0.1 X10*3/uL (0.0-0.2); Basophils Percent Auto 0.3 % (0-2); Hematocrit 44.7 % (37.0-47.0); Hemoglobin 15.9 g/dl (12.0-16.0); Imm Gran Abs Auto 0.15 X10*3/uL (0.00-0.03); Imm Gran Pct Auto 0.7 % (0.0-0.4); Lymphocytes Absolute Auto 1.4 X10*3/uL (1.2-4.9); Lymphocytes Percent Auto 6.4 % (20-40); MANUAL DIFF FLAG NO; Mean Corpuscular HGB Conc 35.6 g/dl (31.0-35.0); Mean Corpuscular Hemoglobin 30.4 pg (27.0-33.0); Mean Corpuscular Volume 85.5 fL (80.0-98.0); Mean Platelet Volume 8.5 fL (9.4-12.3); Monocytes Absolute Auto 1.3 X10*3/uL (0.1-1.2); Monocytes Percent Auto 5.9 % (2-11); Neutrophils Absolute Auto 18.3 x10*3/uL (2.0-8.3); Neutrophils Percent Auto 86.7 % (45-73); Platelet Count 304 X10*3/uL (160-400); Red Blood Count 5.23 X10*6/uL (4.20-5.50); White Blood Count 21.1 X10*3/uL (4.8-10.8)
--- NOTE | 2024-03-02 06:24 | PC.NURSE ---
[facility] ems reports pt in parking lot on [address] [facility] [address] veliz attempted to get in someones car who called 911. pt reports did crack/heroin and hasnt slept in multiple days. voluntary no section on transport. pt is axox4 denies si/hi. pt changed over to hospital attire and belongings to jun. pt medicated per sep and tolerates po intake. bilat eye redness and discharge noted oitment applied per sep. labs obtained. pt refusing IV at this time. aware. call foster within reach.
[2024-03-02 06:46] LABS: Alanine Aminotransferase 58 U/L (0-31); Albumin Level 4.8 g/dL (3.5-5.0); Alkaline Phosphatase 55 U/L (39-117); Anion Gap 19 (12-20); Aspartate Amino Transferase 136 U/L (5-31); Bilirubin Direct 0.2 mg/dL (0.0-0.5); Bilirubin Total 0.6 mg/dL (0.0-1.0); Blood Urea Nitrogen 23 mg/dL (9-16); Carbon Dioxide 18 mmol/L (22-29); Chloride 106 mmol/L (96-108); Creatinine Clr Calc Pharmacy 75.9; Estimated Glomerular Filt Rate 48; Ethanol < 10 mg/dL; Glucose Random 136 mg/dL (60-115); Magnesium 2.4 mg/dL (1.6-2.6); Potassium 3.3 mmol/L (3.3-5.1); Sodium 140 mmol/L (135-145); Total Protein 7.9 g/dL (6.5-8.0)
[2024-03-02 07:24] LABS: Influenza A PCR NEGATIVE (Negative); Influenza B PCR NEGATIVE (Negative); Resp Syncy Virus RNA Qual PCR NEGATIVE (Negative); SARS COV2 PCR INHOUSE NEGATIVE (Negative)
[2024-03-02] MEDS: Albuterol/Iprat 2.5/0.5MG 3 ML AMPUL.NEB INHALE (07:24)
[2024-03-02] MEDS: cefTRIAXone sodium 1 GM in 0.9 % Sodium Chloride 50 ML IV (07:28)
[2024-03-02 07:36] LABS: Lactic Acid 1.6 mmol/L (0.5-2.0)
[2024-03-02 08:16] LABS: Appearance Urine Cloudy; Color Urine Yellow; Glucose Urine UA Negative (Negative); Leukocyte Esterase Urine Negative (Negative); Nitrite Urine Negative (Negative); PH 5.5 (5.0-9.0); UMIC TRIGGER UACC YES; Urine Blood Large (3+) (Negative); Urine Ketones Trace mg/dL (Negative); Urine Protein 300 (3+) mg/dL (Neg-Trace)
[2024-03-02 08:21] LABS: Bacteria Urine 2+ (None Seen); WBC Urine 0-5 /HPF (0-5)
[2024-03-02] MEDS: Lactated Ringers 1,000 ML 999 ML IV (08:21)
[2024-03-02 08:42] LABS: HCG Quantitative < 2 mIU/mL
[2024-03-02] MEDS: iohexoL 350 MG/ML 100 ML INFUS..BTL IV (08:47)
[2024-03-02] MEDS: 0.9 % Sodium Chloride 1,000 ML 999 ML IV (09:36)
[2024-03-02] MEDS: 0.9 % Sodium Chloride 1,000 ML 200 ML IVCONT (11:19)
--- NOTE | 2024-03-02 11:22 | P.HPHOSP_ITS ---
History of Present Illness Date of Service: 03/02/24 Attending physician on admission: [facility] Chief Complaint: Altered mental status Pt is a 43-year-old female with a PMH significant for mild intermittent asthma, recurrent?Hep C (treated in 2018 and 2020), cocaine use disorder, and mood disorder who presents to the ED with?altered mental status likely secondary to crack cocaine use. The patient was voluntarily brought to the ED by police department after pt was found in a parking lot attempting to break into a car. Patient states she relapsed on crack cocaine 2 days prior after being clean for the past 9 months. Reports having a ?whole-body reaction to smoking which was unlike anything she has experienced in the past. Patient states she has been smoking crack cocaine since age 17 and questions whether what she smoked was actually crack cocaine. Patient reported experiencing all-over muscle aches and pains, though especially in RLQ where she felt yesterday had a rock-like hard mass that has since resolved. Had uncontrollable ?waterfall ?diarrhea as well as some shortness of breath. Also has been experiencing pruritus of both eyes and face which she normally experiences when smoking cocaine, but reports this time was much worse. States tried to ?dig out? both her eyes and her whole face. Some blurriness and overall facial pain but no pain with eye movement. Overall she reports currently she feels pretty good . Denies chest pain/pressure, palpitations. Denies significant cough. No fever, chills, nausea vomiting. Denies dysuria. In the ED pt was tachycardic up to 112 and satting as low as 90%. Labs were significant for leukocytosis of 21.1, bicarb of 18, BUN 23, creatinine 1.23, calcium 11.0, AST 136, ALT 58, and CPK 7791. Lactic acid WNL at 1.6. UA negative for UTI. Tested negative for flu, RSV, and COVID. CXR showed negative for acute pulmonary disease with no radioactive evidence of pneumonia. CTA of chest found no evidence pulmonary embolus with trace pericardial effusion. Pt was treated with ondansetron, loperamide, DuoNebs, 2 L IVF, ceftriaxone, erythromycin, and started on maintenance fluids at 200 mls/hr. Pt will be admitted to the hospital for treatment and further evaluation cocaine induced rhabdomyolysis. Review of Systems 2 Review of Systems: Facial and orbital pain and pruritus Diarrhea Myalgias RLQ pain Mild shortness of breath Denies chest pain/pressure, palpitations No fever, chills, nausea, vomiting Denies cough No polyuria or dysuria PMFSH Medical History Hepatitis C Social History Household Members: None Housing: Apartment Do you presently have visiting nurse or other home services: No Patient Tobacco Use Status: Tobacco use Unknown Tobacco use type: Cigarette Smoked in Last 30 Days: Yes e-Cigarette/Vaping Use: Former Use Patient Interested in Nicotine Replacement: No Patient Given Instructions on How to Stop Smoking: Yes Date Education Initiated: 03/02/24 Second Hand Smoke Exposure: No Use of substances other than those prescribed or required for medical reasons: Yes Substance Use Type: Crack/Cocaine Substance Use Type Other:: Was sober 9 months, relapsed on crack/cocaine prior to arrival to ED Substance Use Frequency: Daily Last Used Substance: Just Prior to Admission Currently Displaying Signs/Symptoms of Drug Intoxication Withdrawal: No Any prior treatment program specific to substance use: Yes Have you been hit, kicked, punched, or otherwise hurt by someone within the past year? If so, by whom?: No Do you feel safe in your current relationship?: Yes Is there a partner from a previous relationship who is making you feel unsafe now?: No Are you made to feel afraid or neglected: No Advance Directives: No Advance Directives Information Provided: No Recently lost weight without trying: No Nutrition Risks: No Nutritional Risk Patient : No : No Poor oral hygiene: No Current occupation: Right Handed Meds Allergies Allergy/AdvReac Type Severity Reaction Status Date / Time bee pollen [BEE STINGS] Allergy Unknown ANAPHYLAXIS Verified 03/02/24 05:44 Active Medications: Current Medications Sodium Chloride (Ns) 1,000 mls @ 200 mls/hr IVCONT .Q5H ROBER Stop: 03/02/24 12:59 Last Admin: 03/02/24 11:19 Dose: 200 mls/hr Home Medications ?Medication ?Instructions ?Recorded ?Confirmed ?Last Taken ?Type albuterol sulfate 90 mcg/actuation 2 puff inhalation Q4H PRN SOB 03/02/24 03/02/24 Unknown History aerosol inhaler (Ventolin HFA) amoxicillin 500 mg capsule 500 mg PO BID 03/02/24 03/02/24 03/02/24 History hydroxyzine HCl 50 mg tablet 50 mg PO TID 03/02/24 03/02/24 03/02/24 History melatonin 5 mg tablet 5 mg PO BEDTIME 03/02/24 03/02/24 03/02/24 History multivitamin 1 tab PO DAILY 03/02/24 03/02/24 03/02/24 History nicotine (polacrilex) 2 mg gum 2 mg PO Q2H PRN nicotine cravings 03/02/24 03/02/24 Unknown History olanzapine 10 mg tablet 10 mg PO BEDTIME 03/02/24 03/02/24 03/02/24 History Physical Exam 2 Vital Signs and Narrative: Vital Signs: Last Vital Signs Temp 98.1 F 03/02/24 10:00 Pulse 86 03/02/24 10:00 Resp 15 03/02/24 10:00 BP 115/64 03/02/24 10:00 Pulse Ox 95 03/02/24 10:00 O2 Del Method Room Air 03/02/24 10:00 BMI result Body Mass Index 40.2 Constitutional: Alert, in no acute distress. Mental Status: Oriented to person, place and time. Eyes: Pupils are equal, round, and reactive to light. Periorbital edema, sclera injected bilaterally, scant amount of yellow discharge in corner of right eye Ear, Nose, and Throat: Oropharynx clear, mucous membranes moist. Ears and nose without deformities. Trachea midline. Respiratory: Clear to auscultation bilaterally. No wheezing, rales, or rhonchi. Cardiovascular: S1, S2 regular. No murmurs, rubs, or gallops. Gastrointestinal: Abdomen soft, non-distended, mild RLQ tenderness. No palpable mass. Normal bowel sounds. Neurologic: Cranial nerves II-XII are grossly intact bilaterally. No focal neurological deficits. Moves all extremities spontaneously. Skin: Warm, dry. Extremities: No edema. Psychiatric: Normal mood and affect. Results Labs 03/02/24 05:50 03/02/24 06:18 Labs: Laboratory Results - last 24 hr 03/02/24 03/02/24 03/02/24 05:50 06:18 06:42 MCV 85.5 MCH 30.4 MCHC 35.6 H RDW 12.0 Plt Count 304 D MPV 8.5 L Immature Gran % (Auto) 0.7 H Neut % (Auto) 86.7 H Lymph % (Auto) 6.4 L [place] % (Auto) 5.9 Eos % (Auto) 0.0 Baso % (Auto) 0.3 Lymph # (Auto) 1.4 [place] # (Auto) 1.3 H Eos # (Auto) 0.0 Baso # (Auto) 0.1 Abs Immat Gran (auto) 0.15 H Absolute Neuts (auto) 18.3 H Absolute Nucleated RBC 0.000 Nucleated RBC % (auto) 0.0 Anion Gap 19 Estim Creat Clear Calc 75.9 Estimated GFR 48 Random Glucose 136 H Lactic Acid Calcium 11.0 H D Magnesium 2.4 Total Bilirubin 0.6 Direct Bilirubin 0.2 AST 136 H ALT 58 H Alkaline Phosphatase 55 Total Creatine Kinase 7791 H Total Protein 7.9 Albumin 4.8 Beta HCG, Quant < 2 Urine Color Urine Appearance Urine pH Ur Specific [place] Urine Protein Urine Glucose (UA) Urine Ketones Urine Blood Urine Nitrite Ur Leukocyte Esterase Urine RBC Urine WBC Ur Squamous Epith Cells Urine Bacteria Hyaline Casts Ethyl Alcohol < 10 Influenza Type A (PCR) NEGATIVE Influenza Type B (PCR) NEGATIVE RSV RNA Qual (PCR) NEGATIVE SARS-CoV-2 RNA (RT-PCR) NEGATIVE 03/02/24 03/02/24 07:14 08:10 MCV MCH MCHC RDW Plt Count MPV Immature Gran % (Auto) Neut % (Auto) Lymph % (Auto) [place] % (Auto) Eos % (Auto) Baso % (Auto) Lymph # (Auto) [place] # (Auto) Eos # (Auto) Baso # (Auto) Abs Immat Gran (auto) Absolute Neuts (auto) Absolute Nucleated RBC Nucleated RBC % (auto) Anion Gap Estim Creat Clear Calc Estimated GFR Random Glucose Lactic Acid 1.6 Calcium Magnesium Total Bilirubin Direct Bilirubin AST ALT Alkaline Phosphatase Total Creatine Kinase Total Protein Albumin Beta HCG, Quant Urine Color Yellow Urine Appearance Cloudy Urine pH 5.5 Ur Specific [place] 1.020 Urine Protein 300 (3+) H Urine Glucose (UA) Negative Urine Ketones Trace Urine Blood Large (3+) H Urine Nitrite Negative Ur Leukocyte Esterase Negative Urine RBC 6-10 H Urine WBC 0-5 Ur Squamous Epith Cells 11-20 Urine Bacteria 2+ Hyaline Casts 3-5 Ethyl Alcohol Influenza Type A (PCR) Influenza Type B (PCR) RSV RNA Qual (PCR) SARS-CoV-2 RNA (RT-PCR) Imaging Radiologist's Impressions: Impressions Chest X-Ray 03/02/24 06:45 IMPRESSION: No acute pulmonary disease. No radiographic evidence of pneumonia. Chest CTA 03/02/24 08:46 IMPRESSION: No evidence of pulmonary embolus. Trace pericardial effusion. VTE: negative Assessment and Plan (1) Rhabdomyolysis: Qualifiers: Rhabdomyolysis type: non-traumatic Qualified Code(s): M62.82 - Rhabdomyolysis Status: Acute Plan Pt is a 43-year-old female with a PMH significant for asthma, recurrent?Hep C (treated in 2018 and 2020), cocaine use disorder, and mood disorder who presents to the ED with?altered mental status likely secondary to crack cocaine use. Pt will be admitted to the hospital for treatment and further evaluation cocaine induced rhabdomyolysis. Rhabdomyolysis CPK 7791 at time of presentation Likely secondary to crack cocaine use Patient received 3L IVF in the ED Will be placed on maintenance fluids Follow CPK Conjunctivitis Patient with bilateral conjunctivitis, pruritus, and yellow discharge Reports long history of itching and ?digging? at her eyes when she smokes crack cocaine Erythromycin t.i.d. DARIANA Creatinine 1.23 at time of presentation, up from 0.81 06/25/2021 Likely secondary to GI losses from diarrhea Patient being treated with aggressive IVF resuscitation Follow BMP Leukocytosis WBCs 21.1 at time of presentation Likely reactionary, not due to sepsis; tachycardia likely secondary to cocaine use No clear source of infection, CXR, CTA, and UA negative Patient given IVF and started on broad-spectrum antibiotics in the ED Will empirically treat with ceftriaxone, started 03/02/2024 Follow blood cultures Hypercalcemia Patient's calcium 11.0 at time of presentation, up from 9.7 on 06/25/2021 Likely secondary to rhabdomyolysis Treat as above Monitor BMP Transaminitis AST 136, ALT 58 at time presentation Likely secondary to rhabdomyolysis Treat as above Asthma Pt satting at 90% on RA at time of presentation Likely secondary to smoking crack cocaine use Improved with DuoNebs in the ED, currently satting at 96% on RA Continue home inhaler p.r.n. Nicotine use Pt recently started smoking again, continue to vape Nicotine lozenges prn Mood disorder Continue hydroxyzine, olanzapine Full Code Attending:?Dr. Cortez DVT Prophylaxis: Lovenox Pt will require a hospitalization of at least two nights for treatment of?cocaine induced rhabdomyolysis and DARIANA with aggressive IVF resuscitation and close monitoring of labs. Quality Stroke Does the patient have a stroke diagnosis?: No VTE Prior VTE?: No VTE Risk Level:: Medical - moderate - high VTE Device Contraindication: Treatment Not Indicated VTE Drug Contraindication: N/A - Med Ordered
--- NOTE | 2024-03-02 11:32 | MHC.EDTECH ---
This tech did pt belonging list, pt asked for food and drink, turkey sandwich and winsome shalom. Call foster within reach.
--- NOTE | 2024-03-02 11:34 | PHA.MEDREC ---
Pharmacy Consult ? Medication Reconciliation Pharmacy has completed the medication reconciliation. Confirmed medications with patient. Patient states she started an Amoxicillin 500mg BID regimen on 02/21, she says she has 4 pills left and when I asked where she fills it she said [facility] on [address] I called [facility] and they claimed they have nothing on file for Amoxicillin for her
--- NOTE | 2024-03-02 11:37 | PHA.MEDREC ---
Addendum entered by Sissy Alonso RPh 03/02/24 11:53: reviewed by [facility]. Original Note: Pharmacy Consult ? Medication Reconciliation Pharmacy has completed the medication reconciliation. Confirmed medications with patient. Patient states she started an Amoxicillin 500mg BID regimen on 02/21, she states she has 4 pills (2 days) left and when I asked where she filled it and she states [facility] on [facility]. I called [facility] and asked about it and they stated they have nothing on file for that in her chart. I called [facility] too since she recently filled at one as well and they state she has an older script from + that she never picked up in her history but nothing filled recently. She also states she got a new topical cream from a Dr. Kilpatrick on [facility] in [place] but doesn't remember what the cream is called, pt states she has some sample packs but states no one could bring them because she lives alone.
[2024-03-02] MEDS: Nicotine Polacrilex Lozenge 4 MG LOZENGE BUCCAL ×4 (12:55→20:19)
[2024-03-02 12:59] LABS: Amphetamine Screen Urine Not Detected (Not Detect); Barbiturates, Urine Not Detected (Not Detect); Benzodiazepines Screen Urine Not Detected (Not Detect); Buprenorphine Scr Not Detected (Not Detect); Cannabinoid Screen Urine Not Detected (Not Detect); Cocaine Screen Urine POSITIVE (Not Detect); Fentanyl, urine Not Detected (Not Detect); Methadone Screen, Urine Not Detected (Not Detect); Opiate Screen Urine Not Detected (Not Detect); Oxycodone Screen Urine Not Detected (Not Detect); Phencyclidine Screen Urine Not Detected (Not Detect)
[2024-03-02] MEDS: 0.9 % Sodium Chloride 1,000 ML 125 ML IVCONT (14:24)
--- NOTE | 2024-03-02 14:42 | MHC.EDTECH ---
Pt stated she need her bank card to order meal because our food is disgusting.
[2024-03-02] MEDS: Enoxaparin Sodium 40 MG/0.4 ML SYRINGE SUBCUT (14:43)
--- NOTE | 2024-03-02 15:45 | MHC.RECOVRN ---
Met with pt in ED11 after consult placed to Addiction Medicine for cocaine use. Pt had presented to the ED after EMS was called for pt to trying to get into someone's car. Pt had been under the influence of substances and upon evaluation was admitted for cocaine induced rhabdomyolysis. Pt sitting in bed, awake, alert, easily engages in conversation. Pt reports over the past 2 days using cocaine, INH, approx $700. Prior to that, last use was 9 months ago. Pt reports she had maintained recovery by utilizing [facility] programs and living in a sober house. Pt reports she moved into her own apartment the 2nd week of January which has not been helpful for her recovery. Pt reports she is going to move out of the apartment and in with family in order to maintain and sustain recovery. Pt reports this experience was different than past experiences. Reports the feeling of being under the influence was not the same, in a negative way. Pt reports she has zero desire to return to use. Discussed recovery resources and supports, pt feels that she does not need support at this time. Pt provided with written resources as well as t/w contact information if needed.
[2024-03-02] MEDS: hydrOXYzine HCL 50 MG TABLET PO ×2 (16:09→20:19)
[2024-03-02] MEDS: Ibuprofen 600 MG TABLET PO (18:08)
[2024-03-02] MEDS: OLANZapine 10 MG TABLET PO (20:20)
[2024-03-02] MEDS: Mag&Al/Sim/Diphenhyd/Lidocaine 10 ML ORAL.SUSP PO (20:20)
[2024-03-02] MEDS: Melatonin 3 MG TABLET 6 MG PO (21:12)
[2024-03-03] MEDS: Nicotine Polacrilex Lozenge 4 MG LOZENGE BUCCAL ×5 (01:25→18:38)
[2024-03-03] MEDS: Ibuprofen 600 MG TABLET PO ×3 (01:25→21:12)
[2024-03-03] MEDS: 0.9 % Sodium Chloride 1,000 ML 125 ML IVCONT (02:57)
[2024-03-03 04:00] VITALS: BP 102/63; PULSE 75; RESP 17; TEMP 36.5; O2SAT 97
[2024-03-03 05:44] LABS: MANUAL DIFF FLAG NO
[2024-03-03 05:47] LABS: Basophils Absolute Auto 0.1 X10*3/uL (0.0-0.2); Basophils Percent Auto 0.6 % (0-2); Eosinophils Absolute Auto 0.2 X10*3/uL (0.0-0.4); Eosinophils Percent Auto 2.2 % (0-4); Hematocrit 36.8 % (37.0-47.0); Hemoglobin 12.8 g/dl (12.0-16.0); Imm Gran Abs Auto 0.03 X10*3/uL (0.00-0.03); Imm Gran Pct Auto 0.4 % (0.0-0.4); Lymphocytes Percent Auto 36.7 % (20-40); Mean Corpuscular HGB Conc 34.8 g/dl (31.0-35.0); Mean Corpuscular Hemoglobin 30.6 pg (27.0-33.0); Mean Platelet Volume 8.8 fL (9.4-12.3); Monocytes Absolute Auto 0.8 X10*3/uL (0.1-1.2); Monocytes Percent Auto 9.5 % (2-11); Neutrophils Absolute Auto 4.2 x10*3/uL (2.0-8.3); Neutrophils Percent Auto 50.6 % (45-73); Platelet Count 230 X10*3/uL (160-400); Red Blood Count 4.18 X10*6/uL (4.20-5.50); Red Cell Distribution Width 12.2 % (11.0-16.0); White Blood Count 8.2 X10*3/uL (4.8-10.8)
[2024-03-03 06:06] LABS: Anion Gap 15 (12-20); Blood Urea Nitrogen 12 mg/dL (9-16); Calcium 8.3 mg/dL (8.4-10.2); Carbon Dioxide 18 mmol/L (22-29); Chloride 111 mmol/L (96-108); Creatinine Clr Calc Pharmacy 135.4; Estimated Glomerular Filt Rate > 60; Glucose Random 101 mg/dL (60-115); Potassium 3.6 mmol/L (3.3-5.1); Sodium 140 mmol/L (135-145)
[2024-03-03 08:00] VITALS: BP 110/60; PULSE 83; RESP 16; TEMP 36.3; O2SAT 96
--- NOTE | 2024-03-03 08:20 | P.PNIM_ITS ---
Subjective Subjective Date of Service: 03/03/24 Interval History: f/u on rhabdo complaint of body ache Physical Exam 2 Vital Signs: Vital Signs: Last Vital Signs Temp 97.4 F 03/03/24 08:00 Pulse 83 03/03/24 08:00 Resp 16 03/03/24 08:00 BP 110/60 03/03/24 08:00 Pulse Ox 96 03/03/24 08:00 O2 Del Method Room Air 03/03/24 08:00 BMI result Body Mass Index 40.2 Const: Other: General: AO X 3, no acute distress Resp: CTA bilateral CVS: S1,S2,RRR GI: +BS, NT, no distention Skin: No rash Neuro: motor grossly intact Psych: appropriate affect Objective Data Active Medications Albuterol Sulfate (Albuterol Sulfate 90 Mcg 8 Gm Inhaler) 2 puff INHALE Q4H PRN PRN Reason: Shortness of Breath Benzonatate (Benzonatate 100 Mg Capsule) 100 mg PO TID PRN PRN Reason: Cough Enoxaparin Sodium (Enoxaparin Sodium 40 Mg/0.4 Ml Syringe) 40 mg SUBCUT Q24H [facility] Last Admin: 03/02/24 14:43 Dose: 40 mg Documented By: GRACIELA Erythromycin (Erythromycin Base 0.5% Oph Oin 1 Gm Tube) 1 cm EYE-BOTH TID [facility] Last Admin: 03/02/24 20:20 Dose: 1 cm Documented By: HILARIA Hydroxyzine HCl (Hydroxyzine Hcl 50 Mg Tablet) 50 mg PO TID [facility] Last Admin: 03/02/24 20:19 Dose: 50 mg Documented By: HILARIA Ceftriaxone Sodium 1 gm/ (Sodium Chloride) 50 mls @ 100 mls/hr IV Q24H [facility] Lactated Ringer's (Lr) 1,000 mls @ 125 mls/hr IVCONT .Q8H [facility] Ibuprofen (Ibuprofen 600 Mg Tablet) 600 mg PO Q8H PRN PRN Reason: Pain, Mild (Pain Scale 1-3) Last Admin: 03/03/24 01:25 Dose: 600 mg Documented By: HILARIA Lidocaine/Diphenhydr/Alum/Mg/Simeth (Mag&Al/Sim/Diphenhyd/Lidocaine 10 Ml Oral.Susp) 10 ml PO Q4H PRN; Protocol PRN Reason: Sore Mouth Last Admin: 03/02/24 20:20 Dose: 10 ml Documented By: HILARIA Magnesium Hydroxide (Milk Of Magnesia 30 Ml Oral.Susp) 30 ml PO DAILY PRN PRN Reason: Constipation Melatonin (Melatonin 3 Mg Tablet) 6 mg PO BEDTIME PRN PRN Reason: Insomnia Last Admin: 03/02/24 21:12 Dose: 6 mg Documented By: HILARIA Multivitamins/Vitamin C (Multivitamin Tablet) 1 tab PO DAILY [facility] Nicotine Polacrilex (Nicotine Polacrilex Lozenge 4 Mg Lozenge) 4 mg BUCCAL Q2H PRN PRN Reason: Nicotine Cravings Last Admin: 03/03/24 01:25 Dose: 4 mg Documented By: HILARIA Olanzapine (Olanzapine 10 Mg Tablet) 10 mg PO BEDTIME [facility] Last Admin: 03/02/24 20:20 Dose: 10 mg Documented By: HILARIA Ondansetron HCl (Ondansetron Hcl 4 Mg/2 Ml Vial) 4 mg IVPUSH Q8H PRN PRN Reason: Nausea and Vomiting Labs 03/03/24 05:13 03/03/24 05:13 Labs: Laboratory Results - last 24 hr 03/02/24 03/02/24 03/03/24 06:18 08:10 05:13 MCV 88.0 MCH 30.6 MCHC 34.8 RDW 12.2 Plt Count 230 MPV 8.8 L Immature Gran % (Auto) 0.4 Neut % (Auto) 50.6 Lymph % (Auto) 36.7 Saline % (Auto) 9.5 Eos % (Auto) 2.2 Baso % (Auto) 0.6 Lymph # (Auto) 3.0 Saline # (Auto) 0.8 Eos # (Auto) 0.2 Baso # (Auto) 0.1 Abs Immat Gran (auto) 0.03 Absolute Neuts (auto) 4.2 Absolute Nucleated RBC 0.000 Nucleated RBC % (auto) 0.0 Anion Gap 15 Estim Creat Clear Calc 135.4 Estimated GFR > 60 Random Glucose 101 Calcium 8.3 L D Total Creatine Kinase 8269 H Beta HCG, Quant < 2 Urine Color Yellow Urine Appearance Cloudy Urine pH 5.5 Ur Specific Hickman 1.020 Urine Protein 300 (3+) H Urine Glucose (UA) Negative Urine Ketones Trace Urine Blood Large (3+) H Urine Nitrite Negative Ur Leukocyte Esterase Negative Urine RBC 6-10 H Urine WBC 0-5 Ur Squamous Epith Cells 11-20 Urine Bacteria 2+ Hyaline Casts 3-5 Urine Opiates Screen Not Detected Ur Buprenorphine Scrn Not Detected Ur Oxycodone Screen Not Detected Urine Methadone Screen Not Detected Urine Fentanyl Screen Not Detected Ur Barbiturates Screen Not Detected Ur Phencyclidine Scrn Not Detected Ur Amphetamines Screen Not Detected U Benzodiazepines Scrn Not Detected Urine Cocaine Screen POSITIVE H U Marijuana (THC) Screen Not Detected Assessment and Plan (1) Rhabdomyolysis: Status: Acute (2) Hypoxia: Status: Acute (3) Conjunctivitis: Status: Acute Plan Pt is a 43-year-old female with a PMH significant for asthma, recurrent?Hep C (treated in 2018 and 2020), cocaine use disorder, and mood disorder who presents to the ED with?altered mental status likely secondary to crack cocaine use. Pt will be admitted to the hospital for treatment and further evaluation cocaine induced rhabdomyolysis. Rhabdomyolysis d/t crack cocaine, cpk is higher -continue LR, may need to add bicab -daily cpk Conjunctivitis from digging at eyes when smoking cocain -continue erythromycin DARIANA--pre renal from diarrhea.. resolved. Metabolic acidosis likely from gi loss from diarrhea and from NS -changed NS to LR, continue monitoring, add bicab Leukocytosis, likely reactive, 21--> 8, after 1 dose of ceftriaxone -follow cultures if negative stop Abx Hypercalcemia--likely from rhabdo, resolved now 8.3 Transaminitis -AST 136, ALT 58, repeat -known history of hep c Asthma, mild intermittent. -PRN inhalers -O2 sat 96 on room Nicotine use Pt recently started smoking again, continue to vape Nicotine lozenges prn Mood disorder Continue hydroxyzine, olanzapine Full Code DVT Prophylaxis: Lovenox need for inpatient: rhabdo, needing IVF Quality Stroke Does the patient have a stroke diagnosis?: No VTE Prior VTE?: No VTE Risk Level:: Medical - moderate - high VTE Device Contraindication: Treatment Not Indicated VTE Drug Contraindication: N/A - Med Ordered
[2024-03-03 08:51] LABS: Alanine Aminotransferase 66 U/L (0-31); Albumin Level 3.4 g/dL (3.5-5.0); Alkaline Phosphatase 40 U/L (39-117); Aspartate Amino Transferase 159 U/L (5-31); Bilirubin Direct 0.2 mg/dL (0.0-0.5); Bilirubin Total 0.4 mg/dL (0.0-1.0); Total Protein 5.7 g/dL (6.5-8.0)
[2024-03-03] MEDS: Multivitamin TABLET 1 TAB PO (08:51)
[2024-03-03] MEDS: Erythromycin Base 0.5% Oph Oin 1 GM TUBE 1 CM EYE-BOTH ×3 (08:54→21:13)
[2024-03-03] MEDS: Mag&Al/Sim/Diphenhyd/Lidocaine 10 ML ORAL.SUSP PO ×3 (08:57→18:38)
[2024-03-03] MEDS: cefTRIAXone sodium 1 GM in 0.9 % Sodium Chloride 50 ML IV (09:01)
[2024-03-03] MEDS: Sodium Bicarbonate 8.4% 150 MEQ in Dextrose 5 % 850 ML 100 MEQ IV ×2 (09:55→23:52)
[2024-03-03] MEDS: Enoxaparin Sodium 40 MG/0.4 ML SYRINGE SUBCUT (13:28)
[2024-03-03 15:26] VITALS: BP 135/59; PULSE 85; RESP 16; TEMP 36.4; O2SAT 96
[2024-03-03] MEDS: hydrOXYzine HCL 50 MG TABLET PO ×2 (15:44→21:12)
--- NOTE | 2024-03-03 16:18 | MHC.CM.PN ---
Addendum entered by Brenda León 03/04/24 16:23: PT REPORTS SHE LIVES ALONE AND IS INDEPENDENT WITH CARE SHE HAS NO DME AND NO SERVICES SHE DECLINES TO COMPLETE A HCP PCP: OMID CLAROS DCP: HOME NO SERVICES PT WILL LIKELY NEED SHUTTLE TRANSPORT Original Note: CM ATTEMPTED TO SEE PT WHO WAS UNAVAILABLE CM TO REVISIT
[2024-03-03 19:27] VITALS: BP 105/63; PULSE 92; RESP 17; TEMP 36.8; O2SAT 96
[2024-03-03] MEDS: Throat Lozenge, Medicated LOZENGE 1 LOZENGE MUCOUS MEM ×2 (19:30→21:32)
[2024-03-03] MEDS: OLANZapine 10 MG TABLET PO (21:12)
[2024-03-03 22:14] LABS: Anion Gap 12 (12-20); Carbon Dioxide 26 mmol/L (22-29); Chloride 108 mmol/L (96-108); Sodium 142 mmol/L (135-145)
[2024-03-04] MEDS: Throat Lozenge, Medicated LOZENGE 1 LOZENGE MUCOUS MEM ×5 (00:19→19:54)
[2024-03-04] MEDS: Nicotine Polacrilex Lozenge 4 MG LOZENGE BUCCAL ×5 (00:19→19:54)
[2024-03-04 04:00] VITALS: BP 100/60; PULSE 75; RESP 17; TEMP 36.6; O2SAT 96
[2024-03-04 07:10] LABS: Anion Gap 12 (12-20); Blood Urea Nitrogen 7 mg/dL (9-16); Calcium 8.4 mg/dL (8.4-10.2); Carbon Dioxide 28 mmol/L (22-29); Chloride 106 mmol/L (96-108); Creatinine Clr Calc Pharmacy 143.7; Estimated Glomerular Filt Rate > 60; Glucose Random 98 mg/dL (60-115); Potassium 3.7 mmol/L (3.3-5.1); Sodium 142 mmol/L (135-145)
[2024-03-04 07:56] VITALS: BP 108/71; PULSE 85; RESP 16; TEMP 36.6; O2SAT 95
[2024-03-04] MEDS: Mag&Al/Sim/Diphenhyd/Lidocaine 10 ML ORAL.SUSP PO (08:55)
[2024-03-04] MEDS: Multivitamin TABLET 1 TAB PO (08:56)
[2024-03-04] MEDS: Erythromycin Base 0.5% Oph Oin 1 GM TUBE 1 CM EYE-BOTH ×3 (08:56→19:17)
[2024-03-04] MEDS: cefTRIAXone sodium 1 GM in 0.9 % Sodium Chloride 50 ML IV (08:57)
--- NOTE | 2024-03-04 09:20 | P.PNIM_ITS ---
Subjective Subjective Date of Service: 03/04/24 Interval History: f/u on rhabdo complaint of body ache ckp level down to 3k from 8k Physical Exam 2 Vital Signs: Vital Signs: Last Vital Signs Temp 97.9 F 03/04/24 07:56 Pulse 85 03/04/24 07:56 Resp 16 03/04/24 07:56 BP 108/71 03/04/24 07:56 Pulse Ox 95 03/04/24 07:56 O2 Del Method Room Air 03/04/24 07:56 BMI result Body Mass Index 40.2 General: AO X 3, no acute distress HEENT: swoolen bilteral, no visual impairment, redness, no discharge, she says she has tendency to dig eyes when smoking crack cocaine Resp: CTA bilateral CVS: S1,S2,RRR GI: +BS, NT, no distention Skin: No rash Neuro: motor grossly intact Psych: appropriate affect Objective Data Active Medications Albuterol Sulfate (Albuterol Sulfate 90 Mcg 8 Gm Inhaler) 2 puff INHALE Q4H PRN PRN Reason: Shortness of Breath Benzocaine (Throat Lozenge, Medicated Lozenge) 1 lozenge MUCOUS MEM Q2H PRN PRN Reason: Sore Throat Last Admin: 03/04/24 08:56 Dose: 1 lozenge Documented By: LYSSA Benzonatate (Benzonatate 100 Mg Capsule) 100 mg PO TID PRN PRN Reason: Cough Enoxaparin Sodium (Enoxaparin Sodium 40 Mg/0.4 Ml Syringe) 40 mg SUBCUT Q24H [facility] Last Admin: 03/03/24 13:28 Dose: 40 mg Documented By: LYSSA Erythromycin (Erythromycin Base 0.5% Oph Oin 1 Gm Tube) 1 cm EYE-BOTH TID [facility] Last Admin: 03/04/24 08:56 Dose: 1 cm Documented By: LYSSA Furosemide (Furosemide 40 Mg/4 Ml Vial) 40 mg IVPUSH ONCE ONE; Protocol Stop: 03/04/24 09:21 Hydroxyzine HCl (Hydroxyzine Hcl 50 Mg Tablet) 50 mg PO TID [facility] Last Admin: 03/04/24 09:16 Dose: Not Given Documented By: LYSSA Non-Admin Reason: Patient Refused Ceftriaxone Sodium 1 gm/ (Sodium Chloride) 50 mls @ 100 mls/hr IV Q24H [facility] Last Admin: 03/04/24 08:57 Dose: 100 mls/hr Documented By: LYSSA Lactated Ringer's (Lr) 1,000 mls @ 125 mls/hr IVCONT .Q8H [facility] Last Admin: 03/04/24 09:15 Dose: Not Given Documented By: LYSSA Non-Admin Reason: IV Running Sodium Bicarbonate 150 meq/ (Dextrose) 1,000 mls @ 100 mls/hr IV .Q10H [facility] Last Admin: 03/04/24 06:08 Dose: Not Given Documented By: HILARIA Non-Admin Reason: IV Running Ibuprofen (Ibuprofen 800 Mg Tablet) 800 mg PO Q8H PRN PRN Reason: Pain, Moderate(Pain Scale 4-6) Lidocaine/Diphenhydr/Alum/Mg/Simeth (Mag&Al/Sim/Diphenhyd/Lidocaine 10 Ml Oral.Susp) 10 ml PO Q4H PRN; Protocol PRN Reason: Sore Mouth Last Admin: 03/04/24 08:55 Dose: 10 ml Documented By: LYSSA Magnesium Hydroxide (Milk Of Magnesia 30 Ml Oral.Susp) 30 ml PO DAILY PRN PRN Reason: Constipation Melatonin (Melatonin 3 Mg Tablet) 6 mg PO BEDTIME PRN PRN Reason: Insomnia Last Admin: 03/02/24 21:12 Dose: 6 mg Documented By: HILARIA Multivitamins/Vitamin C (Multivitamin Tablet) 1 tab PO DAILY [facility] Last Admin: 03/04/24 08:56 Dose: 1 tab Documented By: LYSSA Nicotine Polacrilex (Nicotine Polacrilex Lozenge 4 Mg Lozenge) 4 mg BUCCAL Q2H PRN PRN Reason: Nicotine Cravings Last Admin: 03/04/24 08:56 Dose: 4 mg Documented By: LYSSA Olanzapine (Olanzapine 10 Mg Tablet) 10 mg PO BEDTIME [facility] Last Admin: 03/03/24 21:12 Dose: 10 mg Documented By: HILARIA Ondansetron HCl (Ondansetron Hcl 4 Mg/2 Ml Vial) 4 mg IVPUSH Q8H PRN PRN Reason: Nausea and Vomiting Labs 03/03/24 05:13 03/04/24 05:49 Labs: Laboratory Results - last 24 hr 03/03/24 03/04/24 21:54 05:49 Anion Gap 12 12 Estim Creat Clear Calc 143.7 Estimated GFR > 60 Random Glucose 98 Calcium 8.4 Total Creatine Kinase 3903 H Microbiology Microbiology Results: Microbiology 03/02/24 07:14 Blood Culture - Preliminary Blood - Venous No growth after 48 hours. 03/02/24 07:14 Blood Culture - Preliminary Blood - Venous No growth after 24 hours. Assessment and Plan (1) Rhabdomyolysis: Status: Acute (2) Hypoxia: Status: Acute (3) Conjunctivitis: Status: Acute Plan Pt is a 43-year-old female with a PMH significant for asthma, recurrent?Hep C (treated in 2018 and 2020), cocaine use disorder, and mood disorder who presents to the ED with?altered mental status likely secondary to crack cocaine use. Pt will be admitted to the hospital for treatment and further evaluation cocaine induced rhabdomyolysis. Rhabdomyolysis d/t crack cocaine, cpk 8k-->3k -s/p fluid with bicab and LR, -daily cpk Conjunctivitis from digging at eyes when smoking cocain -continue erythromycin DARIANA--pre renal from diarrhea.. resolved. Metabolic acidosis likely from gi loss from diarrhea and from NS -resolved with ivf+bicab Leukocytosis, likely reactive, 21--> 8, after 1 dose of ceftriaxone -follow cultures if negative stop Abx Hypercalcemia--likely from rhabdo, resolved now 8.3 Hypervolemia from ivf- -1 dose of lasix, slow fluid Transaminitis -AST 136, ALT 58, repeat -known history of hep c Asthma, mild intermittent. -PRN inhalers -O2 sat 96 on room Nicotine use -Pt recently started smoking again, continue to vape -Nicotine lozenges prn Mood disorder -Continue hydroxyzine, olanzapine Full Code DVT Prophylaxis: Lovenox need for inpatient: rhabdo, needing IVF Quality Stroke Does the patient have a stroke diagnosis?: No VTE Prior VTE?: No VTE Risk Level:: Medical - moderate - high VTE Device Contraindication: Treatment Not Indicated VTE Drug Contraindication: N/A - Med Ordered
[2024-03-04] MEDS: Ibuprofen 800 MG TABLET PO ×2 (09:41→19:16)
[2024-03-04] MEDS: Furosemide 40 MG/4 ML VIAL IVPUSH (09:41)
[2024-03-04] MEDS: Sodium Bicarbonate 8.4% 150 MEQ in Dextrose 5 % 850 ML 100 MEQ IV (13:14)
[2024-03-04 15:49] VITALS: BP 102/60; PULSE 83; RESP 14; TEMP 36.9; O2SAT 93
[2024-03-04 19:13] VITALS: BP 99/57; PULSE 78; RESP 16; TEMP 36.7; O2SAT 94
[2024-03-04] MEDS: OLANZapine 10 MG TABLET PO (19:17)
[2024-03-04] MEDS: hydrOXYzine HCL 50 MG TABLET PO (19:17)
[2024-03-05] MEDS: Sodium Bicarbonate 8.4% 150 MEQ in Dextrose 5 % 850 ML 100 MEQ IV (01:47)
[2024-03-05 03:01] VITALS: BP 95/61; PULSE 81; RESP 16; TEMP 36.2; O2SAT 94
[2024-03-05] MEDS: Nicotine Polacrilex Lozenge 4 MG LOZENGE BUCCAL ×5 (05:25→20:31)
[2024-03-05] MEDS: Throat Lozenge, Medicated LOZENGE 1 LOZENGE MUCOUS MEM ×2 (05:25→20:31)
[2024-03-05] MEDS: Ibuprofen 800 MG TABLET PO ×3 (05:26→20:32)
[2024-03-05] MEDS: diphenhydrAMINE HCL 50 MG/ML VIAL IVPUSH (05:40)
--- NOTE | 2024-03-05 05:52 | PC.NURSE ---
pt was c/o her eyes itching md notified order for 50 mg iv benadryl but she was only able to get 1/2 dose 25 mg d/t pain at iv site . she didnt want any more md aware
[2024-03-05 07:27] VITALS: BP 114/72; PULSE 82; RESP 14; TEMP 36.7; O2SAT 94
[2024-03-05 09:20] LABS: Anion Gap 7 (12-20); Blood Urea Nitrogen 8 mg/dL (9-16); Calcium 8.9 mg/dL (8.4-10.2); Chloride 102 mmol/L (96-108); Creatinine Clr Calc Pharmacy 137.4; Estimated Glomerular Filt Rate > 60; Glucose Random 104 mg/dL (60-115); Potassium 3.9 mmol/L (3.3-5.1); Sodium 140 mmol/L (135-145)
[2024-03-05] MEDS: hydrOXYzine HCL 50 MG TABLET PO ×3 (09:33→20:32)
[2024-03-05] MEDS: cefTRIAXone sodium 1 GM in 0.9 % Sodium Chloride 50 ML IV (09:33)
[2024-03-05] MEDS: Multivitamin TABLET 1 TAB PO (09:34)
--- NOTE | 2024-03-05 09:36 | HO.PM.IMPN ---
Subjective Subjective Date of Service: 03/05/24 Interval History: f/u on rhabdo cpk trending down, eye more swollen especially left one Physical Exam Vital Signs: Vital Signs: Last Vital Signs Temp 98.1 F 03/05/24 07:27 Pulse 82 03/05/24 07:27 Resp 14 03/05/24 07:27 BP 114/72 03/05/24 07:27 Pulse Ox 94 03/05/24 07:27 O2 Del Method Room Air 03/05/24 07:27 BMI result Body Mass Index 40.2 General: AO X 3, no acute distress HEENT: swoolen bilteral, no visual impairment, redness, no discharge, she says she has tendency to dig eyes when smoking crack cocaine Resp: CTA bilateral CVS: S1,S2,RRR GI: +BS, NT, no distention Skin: No rash Neuro: motor grossly intact Psych: appropriate affect Objective Data Active Medications Albuterol Sulfate (Albuterol Sulfate 90 Mcg 8 Gm Inhaler) 2 puff INHALE Q4H PRN PRN Reason: Shortness of Breath Benzocaine (Throat Lozenge, Medicated Lozenge) 1 lozenge MUCOUS MEM Q2H PRN PRN Reason: Sore Throat Last Admin: 03/05/24 05:25 Dose: 1 lozenge Documented By: TIMMY Benzonatate (Benzonatate 100 Mg Capsule) 100 mg PO TID PRN PRN Reason: Cough Enoxaparin Sodium (Enoxaparin Sodium 40 Mg/0.4 Ml Syringe) 40 mg SUBCUT Q24H [facility] Last Admin: 03/04/24 11:06 Dose: Not Given Documented By: LYSSA Non-Admin Reason: Patient Refused Erythromycin (Erythromycin Base 0.5% Oph Oin 1 Gm Tube) 1 cm EYE-BOTH TID [facility] Last Admin: 03/05/24 09:33 Dose: 1 cm Documented By: GATO Hydroxyzine HCl (Hydroxyzine Hcl 50 Mg Tablet) 50 mg PO TID [facility] Last Admin: 03/05/24 09:33 Dose: 50 mg Documented By: GATO Ceftriaxone Sodium 1 gm/ (Sodium Chloride) 50 mls @ 100 mls/hr IV Q24H [facility] Last Admin: 03/05/24 09:33 Dose: 100 mls/hr Documented By: GATO Clindamycin Phosphate (Cleocin) 600 mg in 50 mls @ 100 mls/hr IV Q8H [facility] Ibuprofen (Ibuprofen 800 Mg Tablet) 800 mg PO Q8H PRN PRN Reason: Pain, Moderate(Pain Scale 4-6) Last Admin: 03/05/24 05:26 Dose: 800 mg Documented By: TIMMY Lidocaine/Diphenhydr/Alum/Mg/Simeth (Mag&Al/Sim/Diphenhyd/Lidocaine 10 Ml Oral.Susp) 10 ml PO Q4H PRN; Protocol PRN Reason: Sore Mouth Last Admin: 03/04/24 08:55 Dose: 10 ml Documented By: LYSSA Magnesium Hydroxide (Milk Of Magnesia 30 Ml Oral.Susp) 30 ml PO DAILY PRN PRN Reason: Constipation Melatonin (Melatonin 3 Mg Tablet) 6 mg PO BEDTIME PRN PRN Reason: Insomnia Last Admin: 03/02/24 21:12 Dose: 6 mg Documented By: HILARIA Multivitamins/Vitamin C (Multivitamin Tablet) 1 tab PO DAILY [facility] Last Admin: 03/05/24 09:34 Dose: 1 tab Documented By: GATO Nicotine Polacrilex (Nicotine Polacrilex Lozenge 4 Mg Lozenge) 4 mg BUCCAL Q2H PRN PRN Reason: Nicotine Cravings Last Admin: 03/05/24 05:25 Dose: 4 mg Documented By: TIMMY Olanzapine (Olanzapine 10 Mg Tablet) 10 mg PO BEDTIME [facility] Last Admin: 03/04/24 19:17 Dose: 10 mg Documented By: TIMMY Ondansetron HCl (Ondansetron Hcl 4 Mg/2 Ml Vial) 4 mg IVPUSH Q8H PRN PRN Reason: Nausea and Vomiting Labs 03/03/24 05:13 03/05/24 08:46 Labs: Laboratory Results - last 24 hr 03/05/24 08:46 Anion Gap 7 L Estim Creat Clear Calc 137.4 Estimated GFR > 60 Random Glucose 104 Calcium 8.9 Total Creatine Kinase 1854 H Microbiology Microbiology Results: Microbiology 03/02/24 07:14 Blood Culture - Preliminary Blood - Venous No growth after 48 hours. 03/02/24 07:14 Blood Culture - Preliminary Blood - Venous No growth after 48 hours. Assessment and Plan (1) Rhabdomyolysis: Status: Acute (2) Hypoxia: Status: Acute (3) Conjunctivitis: Status: Acute Plan 43-year-old female with a PMH significant for asthma, recurrent?Hep C (treated in 2018 and 2020), cocaine use disorder, and mood disorder who presents to the ED with?altered mental status likely secondary to crack cocaine use. Pt will be admitted to the hospital for treatment and further evaluation cocaine induced rhabdomyolysis. Rhabdomyolysis d/t crack cocaine, cpk 8k-->3k--> 1.8k -s/p fluid with bicab and LR, -daily cpk Conjunctivitis from digging at eyes when smoking cocaine, eye more swollen -adding Clinda and Ceftriaxone, Orbital CT, topical erythromycin DARIANA--pre renal from diarrhea.. resolved. Metabolic acidosis likely from gi loss from diarrhea and from NS -resolved with ivf+bicab Leukocytosis, likely reactive, 21--> 8, after 1 dose of ceftriaxone Hypercalcemia--likely from rhabdo, resolved now 8.3 Hypervolemia from ivf- -1 dose of lasix, slow fluid Transaminitis -AST 136, ALT 58, repeat -known history of hep c Asthma, mild intermittent. -PRN inhalers -O2 sat 96 on room Nicotine use -Pt recently started smoking again, continue to vape -Nicotine lozenges prn Mood disorder -Continue hydroxyzine, olanzapine Full Code DVT Prophylaxis: Lovenox need for inpatient: rhabdo, needing IVF, Quality Stroke Does the patient have a stroke diagnosis?: No VTE Prior VTE?: No VTE Risk Level:: Medical - moderate - high VTE Device Contraindication: Treatment Not Indicated VTE Drug Contraindication: N/A - Med Ordered
[2024-03-05 09:39] LABS: Carbon Dioxide 31 mmol/L (22-29)
--- NOTE | 2024-03-05 09:44 | PC.NURSE ---
Patient refused erythromycin ointment,feels it made her eyes worse,Dr. Cortez notified
[2024-03-05] MEDS: Clindamycin Phosphate/D5W 600 MG/50 ML PIGGYBACK 100 MG IV ×2 (10:47→17:22)
[2024-03-05 11:29] LABS: Alanine Aminotransferase 52 U/L (0-31); Albumin Level 3.3 g/dL (3.5-5.0); Alkaline Phosphatase 38 U/L (39-117); Aspartate Amino Transferase 66 U/L (5-31); Bilirubin Direct < 0.2 mg/dL (0.0-0.5); Bilirubin Total 0.2 mg/dL (0.0-1.0); Total Protein 5.6 g/dL (6.5-8.0)
[2024-03-05] MEDS: diphenhydrAMINE HCL 25 MG CAPSULE PO ×2 (12:30→20:32)
--- NOTE | 2024-03-05 12:39 | PC.NURSE ---
Patient refused Lovenox,risks explained,encouraged activity,Dr. Cortez notified
--- NOTE | 2024-03-05 13:27 | MHC.CM.PN ---
EMR REVIEWED AND PER MD ROUNDS, PT IS NOT MEDICALLY CLEARED FOR DC (ORBITAL CELLULITIS) CM WILL CONTINUE TO FOLLOW FOR ANY CHANGE TO DC PLAN/NEEDS.
[2024-03-05 15:41] VITALS: BP 117/75; PULSE 83; RESP 20; TEMP 36.7; O2SAT 93
[2024-03-05] MEDS: OLANZapine 10 MG TABLET PO (20:32)
[2024-03-05] MEDS: Melatonin 3 MG TABLET 6 MG PO (20:32)
[2024-03-05] MEDS: Mag&Al/Sim/Diphenhyd/Lidocaine 10 ML ORAL.SUSP PO (20:38)
[2024-03-06] MEDS: Clindamycin Phosphate/D5W 600 MG/50 ML PIGGYBACK 100 MG IV ×3 (02:03→17:40)
[2024-03-06 02:34] VITALS: BP 107/67; PULSE 67; RESP 18; TEMP 36.6; O2SAT 93
[2024-03-06] MEDS: Nicotine Polacrilex Lozenge 4 MG LOZENGE BUCCAL ×6 (02:38→19:34)
[2024-03-06] MEDS: Throat Lozenge, Medicated LOZENGE 1 LOZENGE MUCOUS MEM ×2 (02:38→08:12)
[2024-03-06] MEDS: diphenhydrAMINE HCL 25 MG CAPSULE PO ×3 (02:38→17:43)
[2024-03-06 07:11] VITALS: BP 95/60; PULSE 69; RESP 14; TEMP 36.4; O2SAT 93
[2024-03-06] MEDS: Ibuprofen 800 MG TABLET PO ×2 (08:11→15:39)
[2024-03-06] MEDS: hydrOXYzine HCL 50 MG TABLET PO ×3 (08:11→19:34)
[2024-03-06] MEDS: Multivitamin TABLET 1 TAB PO (08:12)
[2024-03-06] MEDS: cefTRIAXone sodium 1 GM in 0.9 % Sodium Chloride 50 ML IV (08:12)
[2024-03-06 09:41] LABS: Anion Gap 11 (12-20); Blood Urea Nitrogen 8 mg/dL (9-16); Calcium 9.2 mg/dL (8.4-10.2); Carbon Dioxide 27 mmol/L (22-29); Chloride 106 mmol/L (96-108); Creatinine Clr Calc Pharmacy 133.5; Estimated Glomerular Filt Rate > 60; Glucose Random 107 mg/dL (60-115); Potassium 4.1 mmol/L (3.3-5.1); Sodium 140 mmol/L (135-145)
[2024-03-06] MEDS: Loratadine 10 MG TABLET PO (11:50)
[2024-03-06 15:47] VITALS: BP 95/55; PULSE 73; RESP 20; TEMP 36.6; O2SAT 95
--- NOTE | 2024-03-06 16:59 | PC.NURSE ---
made aware of low BP last , no new orders at this time.
--- NOTE | 2024-03-06 17:09 | HO.PM.IMPN ---
Subjective Subjective Date of Service: 03/06/24 Interval History: eyes are itchy Physical Exam Vital Signs: Vital Signs: Last Vital Signs Temp 98 F 03/06/24 15:47 Pulse 73 03/06/24 15:47 Resp 20 03/06/24 15:47 BP 95/55 L 03/06/24 15:47 Pulse Ox 95 03/06/24 15:47 O2 Del Method Room Air 03/06/24 15:47 BMI result Body Mass Index 40.2 Const: Other: General: AO X 3, no acute distress HENT: swollen eyes but no surrounding erythema and no tendernenes, and reports no pain inthe eyes Resp: CTA bilateral CVS: S1,S2,RRR GI: +BS, NT, no distention Skin: No rash Neuro: motor grossly intact Psych: appropriate affect Objective Data Active Medications Albuterol Sulfate (Albuterol Sulfate 90 Mcg 8 Gm Inhaler) 2 puff INHALE Q4H PRN PRN Reason: Shortness of Breath Benzocaine (Throat Lozenge, Medicated Lozenge) 1 lozenge MUCOUS MEM Q2H PRN PRN Reason: Sore Throat Last Admin: 03/06/24 08:12 Dose: 1 lozenge Documented By: MOISE Benzonatate (Benzonatate 100 Mg Capsule) 100 mg PO TID PRN PRN Reason: Cough Diphenhydramine HCl (Diphenhydramine Hcl 25 Mg Capsule) 25 mg PO Q6H PRN PRN Reason: Itching Last Admin: 03/06/24 09:00 Dose: 25 mg Documented By: MOISE Enoxaparin Sodium (Enoxaparin Sodium 40 Mg/0.4 Ml Syringe) 40 mg SUBCUT Q24H [facility] Last Admin: 03/06/24 12:01 Dose: Not Given Documented By: OMISE Non-Admin Reason: Patient Refused Erythromycin (Erythromycin Base 0.5% Oph Oin 1 Gm Tube) 1 cm EYE-BOTH TID [facility] Last Admin: 03/06/24 14:19 Dose: Not Given Documented By: MOISE Non-Admin Reason: Patient Refused Hydroxyzine HCl (Hydroxyzine Hcl 50 Mg Tablet) 50 mg PO TID [facility] Last Admin: 03/06/24 15:40 Dose: 50 mg Documented By: MOISE Ceftriaxone Sodium 1 gm/ (Sodium Chloride) 50 mls @ 100 mls/hr IV Q24H [facility] Last Infusion: 03/06/24 08:57 Dose: Infused Documented By: MOISE Clindamycin Phosphate (Cleocin) 600 mg in 50 mls @ 100 mls/hr IV Q8H [facility] Last Infusion: 03/06/24 08:43 Dose: Infused Documented By: MOISE Ibuprofen (Ibuprofen 800 Mg Tablet) 800 mg PO Q8H PRN PRN Reason: Pain, Moderate(Pain Scale 4-6) Last Admin: 03/06/24 15:39 Dose: 800 mg Documented By: MOISE Lidocaine/Diphenhydr/Alum/Mg/Simeth (Mag&Al/Sim/Diphenhyd/Lidocaine 10 Ml Oral.Susp) 10 ml PO Q4H PRN; Protocol PRN Reason: Sore Mouth Last Admin: 03/05/24 20:38 Dose: 10 ml Documented By: TIMMY Loratadine (Loratadine 10 Mg Tablet) 10 mg PO DAILY [facility] Last Admin: 03/06/24 11:50 Dose: 10 mg Documented By: MOISE Magnesium Hydroxide (Milk Of Magnesia 30 Ml Oral.Susp) 30 ml PO DAILY PRN PRN Reason: Constipation Melatonin (Melatonin 3 Mg Tablet) 6 mg PO BEDTIME PRN PRN Reason: Insomnia Last Admin: 03/05/24 20:32 Dose: 6 mg Documented By: TIMMY Multivitamins/Vitamin C (Multivitamin Tablet) 1 tab PO DAILY [facility] Last Admin: 03/06/24 08:12 Dose: 1 tab Documented By: MOISE Nicotine Polacrilex (Nicotine Polacrilex Lozenge 4 Mg Lozenge) 4 mg BUCCAL Q2H PRN PRN Reason: Nicotine Cravings Last Admin: 03/06/24 15:42 Dose: 4 mg Documented By: MOISE Olanzapine (Olanzapine 10 Mg Tablet) 10 mg PO BEDTIME [facility] Last Admin: 03/05/24 20:32 Dose: 10 mg Documented By: TIMMY Ondansetron HCl (Ondansetron Hcl 4 Mg/2 Ml Vial) 4 mg IVPUSH Q8H PRN PRN Reason: Nausea and Vomiting Labs 03/03/24 05:13 03/06/24 09:06 Labs: Laboratory Results - last 24 hr 03/06/24 09:06 Anion Gap 11 L Estim Creat Clear Calc 133.5 Estimated GFR > 60 Random Glucose 107 Calcium 9.2 Total Creatine Kinase 897 H Assessment and Plan (1) Rhabdomyolysis: Status: Acute (2) Hypoxia: Status: Acute (3) Conjunctivitis: Status: Acute Plan 43-year-old female with a PMH significant for asthma, recurrent?Hep C (treated in 2018 and 2020), cocaine use disorder, and mood disorder who presents to the ED with?altered mental status likely secondary to crack cocaine use. Pt will be admitted to the hospital for treatment and further evaluation cocaine induced rhabdomyolysis. Rhabdomyolysis d/t crack cocaine, cpk 8k-->3k--> 1.8k-->800 -s/p fluid with bicab and LR, -daily cpk Conjunctivitis from digging at eyes when smoking cocaine, itchy ? allergic -Clinda and Ceftriaxone, Orbital CT soft tissue swelling, DARIANA--pre renal from diarrhea.. resolved. Metabolic acidosis likely from gi loss from diarrhea and from NS -resolved with ivf+bicab Leukocytosis, likely reactive, 21--> 8, after 1 dose of ceftriaxone Hypercalcemia--likely from rhabdo, resolved now Hypervolemia from ivf- -1 dose of lasix, slow fluid Transaminitis -AST 136, ALT 58, repeat -known history of hep c Asthma, mild intermittent. -PRN inhalers -O2 sat 96 on room Nicotine use -Pt recently started smoking again, continue to vape -Nicotine lozenges prn Mood disorder -Continue hydroxyzine, olanzapine Full Code DVT Prophylaxis: Lovenox need for inpatient: rhabdo, needing IVF, Quality Stroke Does the patient have a stroke diagnosis?: No VTE Prior VTE?: No VTE Risk Level:: Medical - moderate - high VTE Device Contraindication: Treatment Not Indicated VTE Drug Contraindication: N/A - Med Ordered
[2024-03-06] MEDS: Milk of Magnesia 30 ML ORAL.SUSP PO (17:48)
[2024-03-06 19:26] VITALS: BP 143/71; PULSE 79; RESP 20; TEMP 36.4; O2SAT 94
[2024-03-06] MEDS: Melatonin 3 MG TABLET 6 MG PO (19:34)
[2024-03-06] MEDS: OLANZapine 10 MG TABLET PO (19:34)
--- NOTE | 2024-03-06 23:23 | W.PM.IDCN ---
History of Present Illness Data of Consult Service Date: 03/06/24 Requesting physician: Atul Fraire Primary Care Provider: TASH Bustillo Reason for consult: leukocytosis,periorbital redness She presents brought in by police after allegedly trying to break into cars. She reports snorting what she thought was cocaine. She had periorbital itching after and swelling CT periorbital swelling. She has asthma and Hepatitis C treated in 2019 and 2020. Review of Systems Review of Systems: Yes all other systems are reviewed and are negative Eyes: Eyes: Reports itchy eyes Allergic/Immunologic: Allergic/Immunologic: Reports itchy eyes PMFSH Past Medical History Medical History Hepatitis C Family History Family history: reviewed and not pertinent Social History Social History Household Members: None Housing: Apartment Do you presently have visiting nurse or other home services: No Patient Tobacco Use Status: Tobacco use Unknown Tobacco use type: Cigarette Smoked in Last 30 Days: Yes e-Cigarette/Vaping Use: Former Use Patient Interested in Nicotine Replacement: No Patient Given Instructions on How to Stop Smoking: Yes Date Education Initiated: 03/02/24 Second Hand Smoke Exposure: No Use of substances other than those prescribed or required for medical reasons: Yes Substance Use Type: Crack/Cocaine Substance Use Type Other:: Was sober 9 months, relapsed on crack/cocaine prior to arrival to ED Substance Use Frequency: Daily Last Used Substance: Just Prior to Admission Currently Displaying Signs/Symptoms of Drug Intoxication Withdrawal: No Any prior treatment program specific to substance use: Yes Have you been hit, kicked, punched, or otherwise hurt by someone within the past year? If so, by whom?: No Do you feel safe in your current relationship?: Yes Is there a partner from a previous relationship who is making you feel unsafe now?: No Are you made to feel afraid or neglected: No Advance Directives: No Advance Directives Information Provided: No Recently lost weight without trying: No Nutrition Risks: No Nutritional Risk Patient : No : No Poor oral hygiene: No service: No Current occupation: Right [employer] Meds Allergies Allergy/AdvReac Type Severity Reaction Status Date / Time bee pollen [BEE STINGS] Allergy Unknown ANAPHYLAXIS Verified 03/02/24 05:44 Active Medications: Current Medications Albuterol Sulfate (Albuterol Sulfate 90 Mcg 8 Gm Inhaler) 2 puff INHALE Q4H PRN PRN Reason: Shortness of Breath Benzocaine (Throat Lozenge, Medicated Lozenge) 1 lozenge MUCOUS MEM Q2H PRN PRN Reason: Sore Throat Last Admin: 03/06/24 08:12 Dose: 1 lozenge Benzonatate (Benzonatate 100 Mg Capsule) 100 mg PO TID PRN PRN Reason: Cough Diphenhydramine HCl (Diphenhydramine Hcl 25 Mg Capsule) 25 mg PO Q6H PRN PRN Reason: Itching Last Admin: 03/06/24 17:43 Dose: 25 mg Enoxaparin Sodium (Enoxaparin Sodium 40 Mg/0.4 Ml Syringe) 40 mg SUBCUT Q24H [facility] Last Admin: 03/06/24 12:01 Dose: Not Given Hydroxyzine HCl (Hydroxyzine Hcl 50 Mg Tablet) 50 mg PO TID [facility] Last Admin: 03/06/24 19:34 Dose: 50 mg Ceftriaxone Sodium 1 gm/ (Sodium Chloride) 50 mls @ 100 mls/hr IV Q24H [facility] Last Infusion: 03/06/24 08:57 Dose: Infused Clindamycin Phosphate (Cleocin) 600 mg in 50 mls @ 100 mls/hr IV Q8H [facility] Last Infusion: 03/06/24 18:29 Dose: Infused Ibuprofen (Ibuprofen 800 Mg Tablet) 800 mg PO Q8H PRN PRN Reason: Pain, Moderate(Pain Scale 4-6) Last Admin: 03/06/24 15:39 Dose: 800 mg Lidocaine/Diphenhydr/Alum/Mg/Simeth (Mag&Al/Sim/Diphenhyd/Lidocaine 10 Ml Oral.Susp) 10 ml PO Q4H PRN; Protocol PRN Reason: Sore Mouth Last Admin: 03/05/24 20:38 Dose: 10 ml Loratadine (Loratadine 10 Mg Tablet) 10 mg PO DAILY [facility] Last Admin: 03/06/24 11:50 Dose: 10 mg Magnesium Hydroxide (Milk Of Magnesia 30 Ml Oral.Susp) 30 ml PO DAILY PRN PRN Reason: Constipation Last Admin: 03/06/24 17:48 Dose: 30 ml Melatonin (Melatonin 3 Mg Tablet) 6 mg PO BEDTIME PRN PRN Reason: Insomnia Last Admin: 03/06/24 19:34 Dose: 6 mg Multivitamins/Vitamin C (Multivitamin Tablet) 1 tab PO DAILY [facility] Last Admin: 03/06/24 08:12 Dose: 1 tab Nicotine Polacrilex (Nicotine Polacrilex Lozenge 4 Mg Lozenge) 4 mg BUCCAL Q2H PRN PRN Reason: Nicotine Cravings Last Admin: 03/06/24 19:34 Dose: 4 mg Olanzapine (Olanzapine 10 Mg Tablet) 10 mg PO BEDTIME [facility] Last Admin: 03/06/24 19:34 Dose: 10 mg Ondansetron HCl (Ondansetron Hcl 4 Mg/2 Ml Vial) 4 mg IVPUSH Q8H PRN PRN Reason: Nausea and Vomiting Home Medications ?Medication ?Instructions ?Recorded ?Confirmed ?Last Taken ?Type albuterol sulfate 90 mcg/actuation 2 puff inhalation Q4H PRN SOB 03/02/24 03/02/24 Unknown History aerosol inhaler (Ventolin HFA) amoxicillin 500 mg capsule 500 mg PO BID 03/02/24 03/02/24 03/02/24 History hydroxyzine HCl 50 mg tablet 50 mg PO TID 03/02/24 03/02/24 03/02/24 History melatonin 5 mg tablet 5 mg PO BEDTIME 03/02/24 03/02/24 03/02/24 History multivitamin 1 tab PO DAILY 03/02/24 03/02/24 03/02/24 History nicotine (polacrilex) 2 mg gum 2 mg PO Q2H PRN nicotine cravings 03/02/24 03/02/24 Unknown History olanzapine 10 mg tablet 10 mg PO BEDTIME 03/02/24 03/02/24 03/02/24 History Physical Exam Vital Signs: Vital Signs: Last Vital Signs Temp 97.5 F 03/06/24 19:26 Pulse 79 03/06/24 19:26 Resp 20 03/06/24 19:26 BP 143/71 H 03/06/24 19:26 Pulse Ox 94 03/06/24 19:26 O2 Del Method Room Air 03/06/24 19:26 BMI result Body Mass Index 40.2 Eyes: Other: mild periorbital swelling eyes vision WNL ,move freely Results Labs 03/03/24 05:13 03/06/24 09:06 Labs: BMP 03/06/24 09:06 Sodium 140 Potassium 4.1 Chloride 106 Carbon Dioxide 27 BUN 8 L Creatinine 0.70 Calcium 9.2 Cardiac Enzymes 03/06/24 Range/Units 09:06 Total Creatine Kinase 897 H (26-140) U/L Microbiology Microbiology Results: Microbiology 03/02/24 07:14 Blood - Venous Blood Culture - Preliminary No growth after 48 hours. 03/02/24 07:14 Blood - Venous Blood Culture - Preliminary No growth after 48 hours. Assessment and Plan (1) Rhabdomyolysis: Qualifiers: Rhabdomyolysis type: non-traumatic Qualified Code(s): M62.82 - Rhabdomyolysis Status: Acute (2) Conjunctivitis: Qualifiers: Acute conjunctivitis type: bacterial Conjunctivitis type: acute Laterality: bilateral Qualified Code(s): H10.33 - Unspecified acute conjunctivitis, bilateral Status: Acute (3) Polysubstance abuse: Status: Acute Plan Resolving periorbital cellulitis,likely allergic reaction to drugs which she has had before. Reactive leukocytosis has gone. She has been on Clindamycin and Ceftriaxone and was admitted five days ago covering possible sinusitis and periorbital cellulitis/allergic and infectious. Rhabdomyolyis likely from cocaine. Switch to po azithromycin Zpack and Medrol dose pack tomorrow and discharge if stable. Would check Hepatitis C viral load. Check HIV test.
[2024-03-07] MEDS: Ibuprofen 800 MG TABLET PO ×2 (00:38→08:49)
[2024-03-07] MEDS: diphenhydrAMINE HCL 25 MG CAPSULE PO (00:38)
[2024-03-07] MEDS: Nicotine Polacrilex Lozenge 4 MG LOZENGE BUCCAL ×3 (00:38→12:50)
[2024-03-07] MEDS: Clindamycin Phosphate/D5W 600 MG/50 ML PIGGYBACK 100 MG IV ×2 (00:39→08:51)
[2024-03-07 02:56] VITALS: BP 105/70; PULSE 63; RESP 18; TEMP 36.2; O2SAT 93
[2024-03-07 07:23] VITALS: BP 122/82; PULSE 60; RESP 14; TEMP 36.6; O2SAT 94
[2024-03-07 08:12] LABS: HIV AB/AG Nonreactive (Nonreactive); HIV Num 1 0.05 S/CO (0.00-0.99)
[2024-03-07] MEDS: hydrOXYzine HCL 50 MG TABLET PO (08:49)
[2024-03-07] MEDS: Loratadine 10 MG TABLET PO (08:49)
[2024-03-07] MEDS: Multivitamin TABLET 1 TAB PO (08:49)
[2024-03-07] MEDS: cefTRIAXone sodium 1 GM in 0.9 % Sodium Chloride 50 ML IV (08:50)
[2024-03-07] MEDS: Milk of Magnesia 30 ML ORAL.SUSP PO (09:04)
--- NOTE | 2024-03-07 10:57 | P.DS_ITS ---
DS: Providers Provider Date of Service: 03/07/24 Date of admission: 03/02/24 12:15 Primary care physician: Laquita Enciso NP Consults: 03/02/24 12:33 Addiction Medicine Routine Consulting Provider: Addiction Covering Reason for consultation: Crack cocaine use 03/06/24 11:25 Consult to Infectious Diseases Routine Consulting Provider: [facility] Reason for consultation: is this conjuctivitis ? DS: Diagnosis Discharge Diagnosis (1) Rhabdomyolysis: Status: Acute (2) Hypoxia: Status: Acute (3) Conjunctivitis: Status: Acute DS: Summary Hospital Course Hospital Course: admission hpi Attending physician on admission: Atul [facility] Chief Complaint: Altered mental status Pt is a 43-year-old female with a PMH significant for mild intermittent asthma, recurrent?Hep C (treated in 2018 and 2020), cocaine use disorder, and mood disorder who presents to the ED with?altered mental status likely secondary to crack cocaine use. The patient was voluntarily brought to the ED by police department after pt was found in a parking lot attempting to break into a car. Patient states she relapsed on crack cocaine 2 days prior after being clean for the past 9 months. Reports having a ?whole-body reaction to smoking which was unlike anything she has experienced in the past. Patient states she has been smoking crack cocaine since age 17 and questions whether what she smoked was actually crack cocaine. Patient reported experiencing all-over muscle aches and pains, though especially in RLQ where she felt yesterday had a rock-like hard mass that has since resolved. Had uncontrollable ?waterfall ?diarrhea as well as some shortness of breath. Also has been experiencing pruritus of both eyes and face which she normally experiences when smoking cocaine, but reports this time was much worse. States tried to ?dig out? both her eyes and her whole face. Some blurriness and overall facial pain but no pain with eye movement. Overall she reports currently she feels pretty good . Denies chest pain/pressure, palpitations. Denies significant cough. No fever, chills, nausea vomiting. Denies dysuria. In the ED pt was tachycardic up to 112 and satting as low as 90%. Labs were significant for leukocytosis of 21.1, bicarb of 18, BUN 23, creatinine 1.23, calcium 11.0, AST 136, ALT 58, and CPK 7791. Lactic acid WNL at 1.6. UA negative for UTI. Tested negative for flu, RSV, and COVID. CXR showed negative for acute pulmonary disease with no radioactive evidence of pneumonia. CTA of chest found no evidence pulmonary embolus with trace pericardial effusion. Pt was treated with ondansetron, loperamide, DuoNebs, 2 L IVF, ceftriaxone, erythromycin, and started on maintenance fluids at 200 mls/hr. Pt will be admitted to the hospital for treatment and further evaluation cocaine induced rhabdomyolysis. Hospital course: 43-year-old female with a PMH significant for asthma, recurrent?Hep C (treated in 2018 and 2020), cocaine use disorder, and mood disorder who presents to the ED with?altered mental status likely secondary to crack cocaine use. Pt will be admitted to the hospital for treatment and further evaluation cocaine induced rhabdomyolysis and conjuctivitis Rhabdomyolysis d/t crack cocaine use initialy CPI was 7k --> cpk 8k-->3k--> 1.8k-->800 with IVF, including bicab , Orbital CT soft tissue swelling, she had no visual impairment. She was treated with ceftriaxone and Clindamycin for 2 days and swelling is much better. She was seen by ID with recommendation to change to [facility]. She is also advised to follow up with PCP and if continue to have eye issues should be refered to an eye doctor DARIANA--pre renal from diarrhea and rhabdo, this has resolved with IVF Metabolic acidosis likely from gi loss from diarrhea and hyperchloremic metabolic acidosis from normal saline. Resolved. Leukocytosis, likely reactive, 21--> 8, after 1 dose of ceftriaxone Hypercalcemia--likely from rhabdo, resolved now Hypervolemia from ivf- -1 dose of lasix, slow fluid Transaminitis -AST 136, ALT 58, repeat -known history of hep c, viral load is pending. HIV is negaive. Asthma, mild intermittent. -PRN inhalers -O2 sat 96 on room Mood disorder -Continue hydroxyzine, olanzapine Time Attestation Discharge Coordination Time (in mins): 40 Quality: Safe Use of Opioids Does Pt have an Active Cancer Diagnosis on the Problem List?: No Quality: Stroke Does the patient have a stroke diagnosis?: No Physical Exam 2 Vital Signs: Vital Signs: Last Vital Signs Temp 97.8 F 03/07/24 07:23 Pulse 60 03/07/24 07:23 Resp 14 03/07/24 07:23 BP 122/82 03/07/24 07:23 Pulse Ox 94 03/07/24 07:23 O2 Del Method Room Air 03/07/24 07:23 BMI result Body Mass Index 40.2 Const: Other: General: AO X 3, no acute distress HEENT: Resp: CTA bilateral CVS: S1,S2,RRR GI: +BS, NT, no distention Skin: No rash Neuro: motor grossly intact Psych: appropriate affect DS: Data Data Completed and Pending Labs on day of discharge: Laboratory Results - last 24 hr 03/06/24 03/07/24 09:06 05:41 Total Creatine Kinase 897 H HIV 1&2 Ab/P24 Ag 4thGn Nonreactive Discharge Plan Discharge Anticipated Discharge Date/Time: 03/07/24 10:29 Patient Disposition: Home, Self-Care Discharge Diagnosis: Rhabdomylsosis, conjuctivitis Referrals: Laquita Enciso NP [Primary Care Provider] - 1 Week Discharge Medications: New azithromycin 250 mg tablet 250 mg PO DAILY 4 Days Qty: 4 0RF Rx Instructions: start on day 2 of therapy Continued ibuprofen 600 mg tablet 600 mg PO Q8H PRN (Reason: pain) Qty: 20 0RF multivitamin Tablet 1 tab PO DAILY olanzapine 10 mg tablet 10 mg PO BEDTIME hydroxyzine HCl 50 mg tablet 50 mg PO TID melatonin 5 mg tablet 5 mg PO BEDTIME nicotine (polacrilex) 2 mg gum 2 mg PO Q2H PRN (Reason: nicotine cravings) albuterol sulfate [Ventolin HFA] 90 mcg/actuation HFA aerosol inhaler 2 puff inhalation Q4H PRN (Reason: SOB) Discontinued amoxicillin 500 mg Capsule 500 mg PO BID Discharge Orders: Discharge Order (Routine); Ordered 03/07/24 Ordered By: Atul Cortez Diet: Advance to usual diet Activity on Discharge: As tolerated Stand Alone Forms: Patient Portal Discharge page Print Language: Singaporean Care Plan Goals: recovery from rhabdomylosis and conjuctivitis Health Concerns: conjunctivitis rhabomylosis Plan of Treatment: take Azithromycin as directed for conjuctivitis, follow up with your Doctor in a week, and ask to have an eye referal for avoid ilicit substances Assessment: see above
--- NOTE | 2024-03-07 11:07 | MHC.CM.PN ---
Patient is discharged today to home selfcare. Clothing has been provided for discharge. Her clothing was disposed of: because it was covered in feces. [facility] has been contacted for new medication. They will bring the medication to the patients room. The patient will receive transport home from the [facility] Shuttle. A coupon has been provided to the patient.
[2024-03-07] MEDS: Azithromycin 500 MG TABLET PO (11:18)
[2024-03-12 13:18] LABS: HCV Log PCR <1.18 NOT DETECTED Log IU/mL (NOT DETECTED); HepC Viral Load <15 NOT DETECTED IU/mL (NOT DETECTED)
== END 2024-03-07 13:24 | disposition home or self-care (01) | DRG 816 ==
LOC: HO.ED 08:08 → HO.EDOVER 13:15 → HO.S3 14:02
PROVIDERS: Emergency Medicine; Internal Medicine; Admitting Provider Student in an Organized Health Care Education/Training Program; Emergency Provider Emergency Medicine; PCP Nurse Practitioner Family; Visit Provider Internal Medicine
DX: T40.5X1A Poisoning by cocaine, accidental (unintentional), initial encounter (principal); E87.20 Acidosis, unspecified; N17.9 Acute kidney failure, unspecified; M62.82 Rhabdomyolysis; H10.33 Unspecified acute conjunctivitis, bilateral; F14.90 Cocaine use, unspecified, uncomplicated; E87.70 Fluid overload, unspecified; F39 Unspecified mood [affective] disorder; J45.20 Mild intermittent asthma, uncomplicated; E83.52 Hypercalcemia; F19.90 Other psychoactive substance use, unspecified, uncomplicated; L03.213 Periorbital cellulitis; F17.210 Nicotine dependence, cigarettes, uncomplicated; Z71.6 Tobacco abuse counseling; Z20.822 Contact with and (suspected) exposure to COVID-19; Z86.19 Personal history of other infectious and parasitic diseases; Z87.891 Personal history of nicotine dependence; Z79.899 Other long term (current) drug therapy
CPT/HCPCS: 0241U; 36415; 70480; 71045; 71275; 80048; 80051; 80076; 80307; 81001; 82550; 83605; 83735; 84702; 85025; 87040; 87389; 87522; 94640; 99285; J0696; J0736; J1200; J1650; J1940; J7120; Q9967

== ENCOUNTER → 2024-03-02 12:15 | Outpatient (BNV) | payer OTHER, SELFPAY | PROVIDERS: Admitting Provider Student in an Organized Health Care Education/Training Program; Emergency Provider Emergency Medicine; Visit Provider Student in an Organized Health Care Education/Training Program | DX: M62.82 Rhabdomyolysis (principal); H10.33 Unspecified acute conjunctivitis, bilateral; R09.02 Hypoxemia | CPT/HCPCS: 99223; 99232; 99239 ==

== ENCOUNTER → 2024-03-02 12:15 | Outpatient (BNV) | payer OTHER, SELFPAY | PROVIDERS: Admitting Provider Student in an Organized Health Care Education/Training Program; Emergency Provider Emergency Medicine; PCP Nurse Practitioner Family; Visit Provider Internal Medicine | DX: M62.82 Rhabdomyolysis (principal); H10.33 Unspecified acute conjunctivitis, bilateral; F19.10 Other psychoactive substance abuse, uncomplicated | CPT/HCPCS: 99222 ==